=== PATIENT | female | born 1995 | race Caucasian/White ===

== ENCOUNTER 2017-08-11 14:01 | Emergency (ER) | payer MEDICAID ==
[2017-08-11] MEDS ORDERED: diphenhydrAMINE 25 MG Cap PO ONE (14:46)
--- NOTE | 2017-08-11 14:50 | EDM.PDOC ---
ED HPI GENERAL MEDICAL PROBLEM - General Chief Complaint: Skin Complaint Stated Complaint: LEFT LEG, ALLERGIC REACTION, POSSIBLE SPIDER BITE Time Seen by Provider: 08/11/17 14:36 Source of Information: Reports: Patient, RN Notes Reviewed History Limitations: Reports: No Limitations - History of Present Illness INITIAL COMMENTS - FREE TEXT/NARRATIVE: 22-year-old female presents to the emergency department with complaint of insect bite to her left thigh, this has occurred within the last 24 hours she is unsure of exactly what bit her local area is painful and red Left Upper Leg Pain Score (Numeric/FACES): 4 - Related Data Allergies Allergy/AdvReac Type Severity Reaction Status Date / Time acetaminophen [From Percocet] Allergy Vomiting Verified 08/11/17 14:24 aripiprazole [From Abilify] Allergy Hives Verified 08/11/17 14:24 fluoxetine [From Prozac] Allergy Hives Verified 08/11/17 14:24 oxycodone [From Percocet] Allergy Vomiting Verified 08/11/17 14:24 Home Meds: Home Meds DULoxetine HCl [Duloxetine HCl] 60 mg PO DAILY 08/11/17 [History] Prazosin HCl [Prazosin] 1 mg PO BEDTIME 08/11/17 [History] QUEtiapine Fumarate [Quetiapine Fumarate] 25 mg PO ASDIRECTED PRN 08/11/17 [ History] QUEtiapine Fumarate [Quetiapine Fumarate] 200 mg PO BEDTIME 08/11/17 [History] hydrOXYzine HCl [hydrOXYzine] 25 mg PO ASDIRECTED PRN 08/11/17 [History] Past Medical History Respiratory History: Reports: Asthma Gastrointestinal History: Reports: Cholelithiasis Genitourinary History: Reports: Renal Calculus 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: Psychiatric History: Reports: Anxiety, Depression, PTSD, Suicide Attempt Dermatologic History: Reports: Eczema - Past Surgical History HEENT Surgical History: Reports: Tonsillectomy GI Surgical History: Reports: Cholecystectomy Female Surgical History: Reports: Section Social & Family History - Tobacco Use Smoking Status *Q: Current Every Day Smoker Years of Tobacco use: 15 Packs/Tins Daily: 0.5 - Caffeine Use Caffeine Use: Reports: Coffee, Soda - Recreational Drug Use Recreational Drug Use: Yes Recreational Drug Type: Reports: Marijuana/Hashish ED ROS GENERAL - Review of Systems Review Of Systems: See Below Constitutional: Reports: No Symptoms Skin: Reports: Rash, Wound ED EXAM, SKIN/RASH Exam: See Below Text/Narrative:: Examination of the integument area on the left thigh, there is a small wound approximately 2 mm in diameter and what appears to be a stinger lodged in the center of the wound, this is removed with a #11 blade without difficulty, redness around the wound is the size of a nickel is tender to the touch and warm to touch Exam Limited By: No Limitations General Appearance: Alert, WD/WN, No Apparent Distress Course - Vital Signs Last Recorded V/S: Last Vital Signs Temp 98.2 F 08/11/17 14:16 Pulse 84 08/11/17 14:16 Resp 18 08/11/17 14:16 BP 129/78 08/11/17 14:16 Pulse Ox 97 08/11/17 14:16 Departure - Departure Time of Disposition: 14:48 Disposition: Home, Self-Care 01 Condition: Good Clinical Impression: Insect bite Qualifiers: Encounter type: initial encounter Qualified Code(s): W57.XXXA - Bitten or stung by nonvenomous insect and other nonvenomous arthropods, initial encounter - Discharge Information Referrals: Roberto Betancourt PA [Primary Care Provider] - Additional Instructions: Use Benadryl as needed to help with the inflammation of the wound, use a antibiotic ointment of your choice, Please followup with your primary care provider in 3-5 days if not better, please call return to the emergency department with worsening of symptoms. - Assessment/Plan Plan: Assessment Acuity = acute Site and laterality = insect bite Etiology = suspicious for venom type Manifestations = local irritation Location of injury = Home Lab values = none Plan Treatment with Benadryl in the emergency department continued use Benadryl as needed at home as well as topical antibiotic ointment follow-up primary care 3- 5 days if not better This note was dictated using [employer] voice recognition software please call with any questions on syntax or grammar.
== END 2017-08-11 15:10 | disposition home or self-care (01) ==
LOC: JP.ED 14:01
DX: S70.362A Insect bite (nonvenomous), left thigh, initial encounter (principal); F17.210 Nicotine dependence, cigarettes, uncomplicated; J45.909 Unspecified asthma, uncomplicated; W57.XXXA Bitten or stung by nonvenomous insect and other nonvenomous arthropods, initial encounter; Z88.5 Allergy status to narcotic agent; Z88.8 Allergy status to other drugs, medicaments and biological substances; Z79.899 Other long term (current) drug therapy; Z87.442 Personal history of urinary calculi; Z88.6 Allergy status to analgesic agent
CPT/HCPCS: 99283; A9270; 10060

== ENCOUNTER 2017-09-12 16:14 | Emergency (ER) | payer MEDICAID ==
[2017-09-12] MEDS ORDERED: Ketorolac 30 MG/ML SDV IVPUSH ONE (16:47)
--- NOTE | 2017-09-12 16:53 | EDM.PDOC ---
ED HPI GENERAL MEDICAL PROBLEM - General Chief Complaint: Chest Pain Stated Complaint: CHEST PAIN,HEADACHE Time Seen by Provider: 09/12/17 16:17 Source of Information: Reports: Patient History Limitations: Reports: No Limitations - History of Present Illness INITIAL COMMENTS - FREE TEXT/NARRATIVE: Being treated for neuritis, right side; she has been getting Solu medrol IV for the last couple of days started to develop chest pain, some shortness of breath she states she does have a hx of anxiety; She has a headache; hasn't taken anything for it. Some nausea with this as well. Onset: Gradual Location: Reports: Chest Severity: Moderate Improves with: Reports: None Worsens with: Reports: None Associated Symptoms: Reports: Chest Pain, Nausea/Vomiting, Other (anxiety) Right Temporal Chest Pain Score (Numeric/FACES): 7 - Related Data Allergies Allergy/AdvReac Type Severity Reaction Status Date / Time aripiprazole [From Abilify] Allergy Hives Verified 09/11/17 09:54 fluoxetine [From Prozac] Allergy Hives Verified 09/11/17 09:54 acetaminophen [From Percocet] AdvReac Vomiting Verified 09/11/17 09:54 oxycodone [From Percocet] AdvReac Vomiting Verified 09/11/17 09:54 Home Meds: Home Meds DULoxetine HCl [Duloxetine HCl] 60 mg PO DAILY 08/11/17 [History] Prazosin HCl [Prazosin] 3 mg PO BEDTIME 08/11/17 [History] QUEtiapine Fumarate [Quetiapine Fumarate] 25 mg PO ASDIRECTED PRN 08/11/17 [ History] QUEtiapine Fumarate [Quetiapine Fumarate] 200 mg PO BEDTIME 08/11/17 [History] hydrOXYzine HCl [hydrOXYzine] 25 mg PO ASDIRECTED PRN 08/11/17 [History] Past Medical History Respiratory History: Reports: Asthma Gastrointestinal History: Reports: Cholelithiasis Genitourinary History: Reports: Renal Calculus 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: Psychiatric History: Reports: Anxiety, Depression, PTSD, Suicide Attempt Endocrine/Metabolic History: Reports: Obesity/BMI 30+ Hematologic History: Reports: Other (See Below) Other Hematologic History: blood clot Dermatologic History: Reports: Eczema - Infectious Disease History Infectious Disease History: Reports: Chicken Pox - Past Surgical History HEENT Surgical History: Reports: Tonsillectomy GI Surgical History: Reports: Cholecystectomy Female Surgical History: Reports: Section Social & Family History - Tobacco Use Smoking Status *Q: Current Some Day Smoker Years of Tobacco use: 10 Packs/Tins Daily: 0.5 - Caffeine Use Caffeine Use: Reports: Coffee, Soda - Recreational Drug Use Recreational Drug Use: No ED ROS GENERAL - Review of Systems Review Of Systems: See Below Respiratory: Reports: Shortness of Breath Cardiovascular: Reports: Chest Pain GI/Abdominal: Reports: Nausea : Reports: No Symptoms Musculoskeletal: Reports: No Symptoms Skin: Reports: No Symptoms Neurological: Reports: Headache Psychiatric: Reports: Anxiety ED EXAM, GENERAL - Physical Exam Exam: See Below Exam Limited By: No Limitations General Appearance: Alert, WD/WN, No Apparent Distress Eye Exam: Bilateral Eye: EOMI, PERRL Throat/Mouth: Normal Inspection, Normal Oropharynx Head: Atraumatic, Normocephalic Neck: Normal Inspection, Supple, Non-Tender, Full Range of Motion Respiratory/Chest: No Respiratory Distress, Lungs Clear, Normal Breath Sounds Cardiovascular: Regular Rate, Rhythm GI/Abdominal: Normal Bowel Sounds, Distended, Other (obese) Back Exam: Full Range of Motion Extremities: Normal Inspection, Normal Range of Motion, Other (right forearm is tender where midline is in place) Neurological: Alert, Oriented, CN II-XII Intact, Normal Cognition, Normal Gait, Normal Reflexes, No Motor/Sensory Deficits Psychiatric: Normal Affect, Normal Mood Skin Exam: Warm, Dry, Intact, Normal Color Course - Vital Signs Last Recorded V/S: Last Vital Signs Temp 97.9 F 09/12/17 16:49 Pulse 56 L 09/12/17 16:49 Resp 16 09/12/17 16:49 BP 125/72 09/12/17 16:49 Pulse Ox 94 L 09/12/17 16:49 - Orders/Labs/Meds Orders: Active Orders 24 hr Category Date Time Status EKG Documentation Completion [RC] ASDIRECTED Care 09/12/17 16:18 Active EKG 12 Lead [EK] Routine Ther 09/12/17 16:17 Ordered Labs: Laboratory Tests 09/12/17 09/12/17 Range/Units 16:59 16:59 WBC 11.6 H (4.5-11.0) K/uL RBC 4.72 (3.30-5.50) M/uL Hgb 12.1 (12.0-15.0) g/dL Hct 38.0 (36.0-48.0) % MCV 81 (80-98) fL MCH 26 L (27-31) pg MCHC 32 (32-36) % Plt Count 274 (150-400) K/uL Neut % (Auto) 86 H (36-66) % Lymph % (Auto) 9 L (24-44) % [place] % (Auto) 5 (2-6) % Eos % (Auto) 0 L (2-4) % Baso % (Auto) 0 (0-1) % Sodium 141 (140-148) mmol/L Potassium 3.5 L (3.6-5.2) mmol/L Chloride 107 (100-108) mmol/L Carbon Dioxide 24 (21-32) mmol/L Anion Gap 13.5 (5.0-14.0) mmol/L BUN 14 (7-18) mg/dL Creatinine 0.9 (0.6-1.0) mg/dL Est Cr Clr Drug Dosing 93.73 mL/min Estimated GFR (MDRD) > 60 (>60) Glucose 210 H (74-106) mg/dL Calcium 8.2 L (8.5-10.1) mg/dL Total Bilirubin 0.3 (0.2-1.0) mg/dL AST 41 H (15-37) U/L ALT 75 (12-78) U/L Alkaline Phosphatase 69 (46-116) U/L Troponin I < 0.017 (0.000-0.056) ng/mL Total Protein 6.3 L (6.4-8.2) g/dL Albumin 3.3 L (3.4-5.0) g/dL Globulin 3.0 (2.3-3.5) g/dL Albumin/Globulin Ratio 1.1 L (1.2-2.2) Meds: Medications Discontinued Medications Generic Name Dose Route Start Last Admin Trade Name Freq PRN Reason Stop Dose Admin Sodium Chloride 1,000 mls @ 75 mls/hr 09/12/17 17:00 09/12/17 16:59 Normal Saline IV 75 mls/hr ASDIRECTED MEHRAN Administration Ketorolac Tromethamine 30 mg 09/12/17 16:47 09/12/17 16:59 Toradol IVPUSH 09/12/17 16:48 30 mg ONETIME ONE Administration - Re-Assessments/Exams Free Text/Narrative Re-Assessment/Exam: 09/12/17 20:37 reviewed MRI results as well as lab results with patient She recieved IVF and toradol; not much help for migraine; which nothing has helped for the last 2 weeks. Departure - Departure Time of Disposition: 18:00 Disposition: Home, Self-Care 01 Condition: Fair Clinical Impression: Chest wall pain, Headache - Discharge Information Instructions: Chest Wall Pain, [id number], General Headache Without Cause, [id number] Referrals: Roberto Betancourt PA [Primary Care Provider] - Forms: ED Department Discharge Additional Instructions: Stay hydrated; Tylenol and Ibuprofen are both safe to take for your headache. Be sure to follow up with Dr. Malone as directed as well as your primary care doctor. Continue with your oral steroids. - Problem List & Annotations (1) Chest wall pain SNOMED Code(s): 565775782 Code(s): R07.89 - OTHER CHEST PAIN Status: Acute Priority: Medium - Problem List Review Problem List Initiated/Reviewed/Updated: Yes - My Orders Last 24 Hours: My Active Orders 09/12/17 16:17 EKG 12 Lead [EK] Routine 09/12/17 16:18 EKG Documentation Completion [RC] ASDIRECTED - Assessment/Plan Last 24 Hours: My Active Orders 09/12/17 16:17 EKG 12 Lead [EK] Routine 09/12/17 16:18 EKG Documentation Completion [RC] ASDIRECTED
[2017-09-12] MEDS ORDERED: Sodium Chloride 0.9% 1,000 ML IV SCH (17:00)
== END 2017-09-12 18:10 | disposition home or self-care (01) ==
LOC: JP.ED 16:14
DX: R07.89 Other chest pain (principal); R51 Headache; F17.210 Nicotine dependence, cigarettes, uncomplicated; Z88.5 Allergy status to narcotic agent; Z88.8 Allergy status to other drugs, medicaments and biological substances; Z79.899 Other long term (current) drug therapy; Z87.442 Personal history of urinary calculi
CPT/HCPCS: 36415; 80053; 84484; 85025; 93005; 96361; 96374; 99285; J1885; J7030

== ENCOUNTER 2017-11-19 12:12 | Emergency (ER) | payer MEDICAID ==
[2017-11-19] MEDS ORDERED: Gadoteridol 279.3 MG/ML 20 ML SDV IV SCH (13:30)
--- NOTE | 2017-11-19 14:34 | EDM.PDOC ---
ED HPI GENERAL MEDICAL PROBLEM - General Chief Complaint: Headache Stated Complaint: LOSS OF VISION-RT EYE Time Seen by Provider: 11/19/17 12:30 Source of Information: Reports: Patient, Family History Limitations: Reports: No Limitations - History of Present Illness INITIAL COMMENTS - FREE TEXT/NARRATIVE: 22-year-old female with previous vision loss and questionable MS findings on MRI has been doing well for the last 2 months but has redeveloped visual loss and a headache around her right eye over the past 12 hours. She called the neurology department in [place] who works with her, they recommended she come here. She has no peripheral symptoms such as numbness, weakness, or discoordination of the arms or legs. No recent trauma. No recent illness. Her visual change is all she sees is "an outline of things", but she does see color and shapes which is better than last time which was just a "white out". Onset: Gradual Duration: Hour(s): (Symptoms have been present for 12 hours) Headache Pain Score (Numeric/FACES): 6 - Related Data Allergies Allergy/AdvReac Type Severity Reaction Status Date / Time aripiprazole [From Abilify] Allergy Hives Verified 11/19/17 12:21 fluoxetine [From Prozac] Allergy Hives Verified 11/19/17 12:21 acetaminophen [From Percocet] AdvReac Vomiting Verified 11/19/17 12:21 oxycodone [From Percocet] AdvReac Vomiting Verified 11/19/17 12:21 Home Meds: Home Meds DULoxetine HCl [Duloxetine HCl] 60 mg PO DAILY 08/11/17 [History] Prazosin HCl [Prazosin] 3 mg PO BEDTIME 08/11/17 [History] QUEtiapine Fumarate [Quetiapine Fumarate] 25 mg PO ASDIRECTED PRN 08/11/17 [ History] QUEtiapine Fumarate [Quetiapine Fumarate] 200 mg PO BEDTIME 08/11/17 [History] hydrOXYzine HCl [hydrOXYzine] 25 mg PO ASDIRECTED PRN 08/11/17 [History] Past Medical History HEENT History: Reports: Impaired Vision Respiratory History: Reports: Asthma Gastrointestinal History: Reports: Cholelithiasis Genitourinary History: Reports: Renal Calculus 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: Musculoskeletal History: Reports: Back Pain, Chronic, Other (See Below) Neurological History: Reports: Concussion, Migraines Psychiatric History: Reports: Anxiety, Depression, PTSD, Suicide Attempt Endocrine/Metabolic History: Reports: Obesity/BMI 30+ Immunologic History: Reports: None Dermatologic History: Reports: Eczema - Infectious Disease History Infectious Disease History: Reports: Chicken Pox - Past Surgical History Head Surgeries/Procedures: Reports: None HEENT Surgical History: Reports: Tonsillectomy Respiratory Surgical History: Reports: None GI Surgical History: Reports: Cholecystectomy Female Surgical History: Reports: Section Endocrine Surgical History: Reports: None Neurological Surgical History: Reports: None Musculoskeletal Surgical History: Reports: None Dermatological Surgical History: Reports: None Social & Family History - Tobacco Use Smoking Status *Q: Current Every Day Smoker Years of Tobacco use: 10 Packs/Tins Daily: 0.5 Used Tobacco, but Quit: No Second Hand Smoke Exposure: No - Caffeine Use Caffeine Use: Reports: Coffee, Tea - Recreational Drug Use Recreational Drug Use: No ED ROS GENERAL - Review of Systems Review Of Systems: See Below Constitutional: Denies: Fever, Chills HEENT: Reports: Vision Change Respiratory: Denies: Shortness of Breath Cardiovascular: Denies: Chest Pain GI/Abdominal: Denies: Abdominal Pain, Nausea, Vomiting Skin: Reports: No Symptoms Neurological: Reports: Headache - Physical Exam Exam: See Below Exam Limited By: No Limitations General Appearance: Alert, No Apparent Distress Eye Exam: Bilateral Eye: EOMI, PERRL Head Exam: Atraumatic Neck: Normal Inspection Respiratory/Chest: No Respiratory Distress, Lungs Clear Cardiovascular: Regular Rate, Rhythm Neuro Exam (Abbreviated): Alert, Oriented, No Motor/Sensory Deficits. No: Disoriented Psychiatric: Normal Affect, Normal Mood Skin Exam: Warm, Dry Course - Vital Signs Last Recorded V/S: Last Vital Signs Temp 95.6 F 11/19/17 12:30 Pulse 75 11/19/17 12:30 Resp 16 11/19/17 12:30 BP 126/77 11/19/17 12:30 Pulse Ox 96 11/19/17 12:30 - Orders/Labs/Meds Meds: Medications Discontinued Medications Generic Name Dose Route Start Last Admin Trade Name Freq PRN Reason Stop Dose Admin Gadoteridol 20 ml 11/19/17 13:30 11/19/17 14:05 Prohance IV 20 ml . DIRECTED MEHRAN Administration - Re-Assessments/Exams Free Text/Narrative Re-Assessment/Exam: 11/19/17 14:34 Discussed her case with Dr. Strauss, neurologist in [place] and an MRI of the brain and optic nerve on the right side was advised. Fortunately she she was able to get into the MRI urgently. 11/19/17 16:51 MRI of the brain and optic nerve showed one small focus of abnormality in the deep white matter right cerebral hemisphere. This was discussed with ophthalmology and neurology. Dr. Mendez agreed to see her this evening followed by Dr. Strauss seeing her at 10 AM tomorrow morning at [facility] in [place]. Departure - Departure Time of Disposition: 16:52 Disposition: Home, Self-Care 01 Condition: Good Clinical Impression: Vision loss of right eye - Discharge Information Instructions: Visual Disturbances Referrals: Roberto Betancourt PA [Primary Care Provider] - Forms: ED Department Discharge Care Plan Goals: Dr. Mendez will need to at the eye clinic in [place] at 6:00 for further examination.
--- NOTE | 2017-11-19 14:47 | MR ---
Face Neck Orbit w wo Cont HISTORY: vision loss TECHNIQUE: Multiplanar sequences of the brain and orbits were performed without and with gadolinium a long with diffusion imaging. Thin section sequences were obtained through the orbits in axial and cor onal projections. There are no prior studies present for comparison. FINDINGS: Midline structures appear intact. No restricted diffusion or hemosiderin deposition is seen. No acute hemorrhage or infarct is identified. On the T2 and FLAIR images there is a single 2 x 3 mm focus of increased signal deep white matter rig ht cerebral hemisphere cephalad to the lenticular nucleus Signal characteristics of the hill and whit e matter appear otherwise within normal limits throughout the brain. No mass lesion, mass effect, mid line shift, or ventricular abnormality is identified. There is no enhancing mass or other abnormal in tracranial enhancement on the contrasted sequences. No abnormal extra-axial fluid collections are see n. Visualized paranasal sinuses and mastoid air cells are clear. Globes appear symmetric with no signal abnormality or abnormal enhancement. Intraocular muscles are s ymmetric. Retrobulbar fat demonstrates normal signal characteristics. No intraorbital mass or abnorma l enhancement is identified. I see no abnormal signal or enhancement along the optic nerves or optic tracts. No abnormal signal is seen in the region of the optic chiasm. There is no evidence for pituit enrique or suprasellar mass or abnormal enhancement. IMPRESSION: 1. A single small nonspecific focus of increased T2 signal is seen in the deep white matter right cer ebral hemisphere. Differential could include a prominent perivascular space, sequela of migraine head aches, a single focus of chronic microvascular ischemia or early demyelinating process such as multip le sclerosis. 2. MRI brain otherwise within normal limits. No hemorrhage, infarct, or other acute intracranial abno rmality is identified. I see no intracranial mass or abnormal enhancement. 3. No intraorbital signal abnormality, mass, or abnormal enhancement is identified. I see no abnormal signal or enhancement along the optic nerves or optic tracts.
== END 2017-11-19 16:55 | disposition home or self-care (01) ==
LOC: JP.ED 12:12
DX: H54.61 Unqualified visual loss, right eye, normal vision left eye (principal); E66.9 Obesity, unspecified; F17.210 Nicotine dependence, cigarettes, uncomplicated; Z88.8 Allergy status to other drugs, medicaments and biological substances
CPT/HCPCS: 70543; 99284; A9576; A9579

== ENCOUNTER 2017-11-24 12:04 | Emergency (ER) | payer MEDICAID ==
[2017-11-24] MEDS ORDERED: Sodium Chloride 0.9% 10 ML Syringe FLUSH PRN (14:32)
[2017-11-24] MEDS ORDERED: Ondansetron 4 MG/2 ML SDV IVPUSH ONE (14:33)
--- NOTE | 2017-11-24 14:37 | EDM.PDOC ---
ED HPI GENERAL MEDICAL PROBLEM - General Chief Complaint: General Stated Complaint: HEADACHE, VOMITING, ABD PAIN Time Seen by Provider: 11/24/17 14:20 Source of Information: Reports: Patient, Family, RN Notes Reviewed History Limitations: Reports: No Limitations - History of Present Illness INITIAL COMMENTS - FREE TEXT/NARRATIVE: 22-year-old female presents to the emergency department today complaint of nausea vomiting headache generalized feeling poorly as well as abdominal pain. She is currently being evaluated for the possibility of multiple sclerosis has lost vision in her right eye. She states she's been ill over the last 3 days unable to keep food or water down with increasing nausea and vomiting no fevers abdominal Pain Score (Numeric/FACES): 5 - Related Data Allergies Allergy/AdvReac Type Severity Reaction Status Date / Time aripiprazole [From Abilify] Allergy Hives Verified 11/24/17 14:07 fluoxetine [From Prozac] Allergy Hives Verified 11/24/17 14:07 acetaminophen [From Percocet] AdvReac Vomiting Verified 11/24/17 14:07 oxycodone [From Percocet] AdvReac Vomiting Verified 11/24/17 14:07 Home Meds: Home Meds DULoxetine HCl [Duloxetine HCl] 60 mg PO DAILY 08/11/17 [History] Prazosin HCl [Prazosin] 3 mg PO BEDTIME 08/11/17 [History] QUEtiapine Fumarate [Quetiapine Fumarate] 25 mg PO ASDIRECTED PRN 08/11/17 [ History] QUEtiapine Fumarate [Quetiapine Fumarate] 200 mg PO BEDTIME 08/11/17 [History] hydrOXYzine HCl [hydrOXYzine] 25 mg PO ASDIRECTED PRN 08/11/17 [History] Past Medical History HEENT History: Reports: Impaired Vision Respiratory History: Reports: Asthma Gastrointestinal History: Reports: Cholelithiasis Genitourinary History: Reports: Renal Calculus 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: Musculoskeletal History: Reports: Back Pain, Chronic Neurological History: Reports: Concussion, Migraines, MS Psychiatric History: Reports: Anxiety, Depression, PTSD, Suicide Attempt Endocrine/Metabolic History: Reports: Obesity/BMI 30+ Hematologic History: Reports: Other (See Below) Other Hematologic History: blood clot Dermatologic History: Reports: Eczema - Infectious Disease History Infectious Disease History: Reports: Chicken Pox - Past Surgical History Head Surgeries/Procedures: Reports: None HEENT Surgical History: Reports: Tonsillectomy Respiratory Surgical History: Reports: None GI Surgical History: Reports: Cholecystectomy Female Surgical History: Reports: Section Endocrine Surgical History: Reports: None Neurological Surgical History: Reports: None Musculoskeletal Surgical History: Reports: None Dermatological Surgical History: Reports: None Social & Family History - Tobacco Use Smoking Status *Q: Never Smoker - Caffeine Use Caffeine Use: Reports: Coffee, Soda - Recreational Drug Use Recreational Drug Use: No ED ROS GENERAL - Review of Systems Review Of Systems: See Below Constitutional: Reports: Fatigue HEENT: Reports: No Symptoms Respiratory: Reports: No Symptoms Cardiovascular: Reports: No Symptoms GI/Abdominal: Reports: Abdominal Pain, Flatus, Nausea, Vomiting : Reports: No Symptoms Musculoskeletal: Reports: No Symptoms Skin: Reports: No Symptoms Neurological: Reports: Headache ED EXAM, GENERAL - Physical Exam Exam: See Below Free Text/Narrative:: General: Obese female, not in any distress, alert and oriented x3 HEENT: head is atraumatic normocephalic, eyes pupils equal round reactive to light, sclera clear no conjunctivitis appreciated. Nose no septal deviation, nares are clear , no blood present. Mouth mucosa is moist and pink no erythema or exudate noted in soft palate, tongue is midline uvula is midline, dentition is intact. Neck: Supple no thyromegaly no tracheal deviation. Nodes: Cervical nodes subclavicular nodes nontender no palpable lymphadenopathy noted. Lungs: clear to auscultation bilaterally with symmetrical respirations, no adventitious noise appreciated. CV: Regular rate and rhythm S1 and S2 appreciated no murmurs rubs or gallops noted. Abdomen: Soft, obese, nontender, no palpable masses or organomegaly appreciated , no distention no guarding bowel sounds are present, . Neuro: Cranial nerves II through XII grossly intact Skin: Warm and dry, intact Extremities: No lower extremity edema appreciated, pedal pulse is +2. Course - Vital Signs Last Recorded V/S: Last Vital Signs Temp 98.3 F 11/24/17 14:06 Pulse 67 11/24/17 14:06 Resp 16 11/24/17 14:06 BP 138/61 11/24/17 14:06 Pulse Ox 99 11/24/17 14:06 - Orders/Labs/Meds Orders: Active Orders 24 hr Category Date Time Status Peripheral IV Care [RC] . DIRECTED Care 11/24/17 14:32 Active Lactated Ringers [Ringers, Lactated] 1,000 ml Med 11/24/17 14:45 Active IV ASDIRECTED Sodium Chloride 0.9% [Saline Flush] Med 11/24/17 14:32 Active 10 ml FLUSH ASDIRECTED PRN Peripheral IV Insertion Adult [OM.PC] Urgent Oth 11/24/17 14:32 Ordered Medication Orders Lactated Ringer's (Ringers, Lactated) 1,000 mls @ 999 mls/hr IV ASDIRECTED MEHRAN Last Admin: 11/24/17 14:57 Dose: 999 mls/hr Sodium Chloride (Saline Flush) 10 ml FLUSH ASDIRECTED PRN PRN Reason: Keep Vein Open Last Admin: 11/24/17 14:57 Dose: 10 ml Labs: Laboratory Tests 11/24/17 11/24/17 11/24/17 Range/Units 14:32 15:07 15:07 WBC 9.1 (4.5-11.0) K/uL RBC 4.97 (3.30-5.50) M/uL Hgb 13.1 (12.0-15.0) g/dL Hct 40.7 (36.0-48.0) % MCV 82 (80-98) fL MCH 26 L (27-31) pg MCHC 32 (32-36) % Plt Count 300 (150-400) K/uL Neut % (Auto) 65 (36-66) % Lymph % (Auto) 24 (24-44) % [place] % (Auto) 8 H (2-6) % Eos % (Auto) 2 (2-4) % Baso % (Auto) 0 (0-1) % Sodium 137 L (140-148) mmol/L Potassium 3.9 (3.6-5.2) mmol/L Chloride 104 (100-108) mmol/L Carbon Dioxide 27 (21-32) mmol/L Anion Gap 9.9 (5.0-14.0) mmol/L BUN 9 (7-18) mg/dL Creatinine 0.8 (0.6-1.0) mg/dL Est Cr Clr Drug Dosing 109.38 mL/min Estimated GFR (MDRD) > 60 (>60) Glucose 84 (74-106) mg/dL Lactic Acid 0.9 (0.4-2.0) mmol/L Calcium 8.7 (8.5-10.1) mg/dL Total Bilirubin 0.4 (0.2-1.0) mg/dL AST 13 L (15-37) U/L ALT 26 (12-78) U/L Alkaline Phosphatase 77 (46-116) U/L Total Protein 6.8 (6.4-8.2) g/dL Albumin 3.7 (3.4-5.0) g/dL Globulin 3.1 (2.3-3.5) g/dL Albumin/Globulin Ratio 1.2 (1.2-2.2) Lipase 89 (73-393) U/L Urine Color Urine Appearance Urine pH (4.5-8.0) Ur Specific [place] (1.008-1.030) Urine Protein (NEGATIVE) mg/dL Urine Glucose (UA) (NEGATIVE) mg/dL Urine Ketones (NEGATIVE) mg/dL Urine Occult Blood (NEGATIVE) Urine Nitrite (NEGATIVE) Urine Bilirubin (NEGATIVE) Urine Urobilinogen (NORMAL) mg/dL Ur Leukocyte Esterase (NEGATIVE) Urine RBC (0-5) Urine WBC (0-5) Ur Epithelial Cells Amorphous Sediment Urine Bacteria Urine Mucus Urine HCG, Qual 11/24/17 11/24/17 Range/Units 16:04 16:04 WBC (4.5-11.0) K/uL RBC (3.30-5.50) M/uL Hgb (12.0-15.0) g/dL Hct (36.0-48.0) % MCV (80-98) fL MCH (27-31) pg MCHC (32-36) % Plt Count (150-400) K/uL Neut % (Auto) (36-66) % Lymph % (Auto) (24-44) % [place] % (Auto) (2-6) % Eos % (Auto) (2-4) % Baso % (Auto) (0-1) % Sodium (140-148) mmol/L Potassium (3.6-5.2) mmol/L Chloride (100-108) mmol/L Carbon Dioxide (21-32) mmol/L Anion Gap (5.0-14.0) mmol/L BUN (7-18) mg/dL Creatinine (0.6-1.0) mg/dL Est Cr Clr Drug Dosing mL/min Estimated GFR (MDRD) (>60) Glucose (74-106) mg/dL Lactic Acid (0.4-2.0) mmol/L Calcium (8.5-10.1) mg/dL Total Bilirubin (0.2-1.0) mg/dL AST (15-37) U/L ALT (12-78) U/L Alkaline Phosphatase (46-116) U/L Total Protein (6.4-8.2) g/dL Albumin (3.4-5.0) g/dL Globulin (2.3-3.5) g/dL Albumin/Globulin Ratio (1.2-2.2) Lipase (73-393) U/L Urine Color Yellow Urine Appearance Clear Urine pH 6.0 (4.5-8.0) Ur Specific [place] 1.015 (1.008-1.030) Urine Protein Negative (NEGATIVE) mg/dL Urine Glucose (UA) Normal (NEGATIVE) mg/dL Urine Ketones Negative (NEGATIVE) mg/dL Urine Occult Blood Negative (NEGATIVE) Urine Nitrite Negative (NEGATIVE) Urine Bilirubin Negative (NEGATIVE) Urine Urobilinogen Normal (NORMAL) mg/dL Ur Leukocyte Esterase Negative (NEGATIVE) Urine RBC 0-5 (0-5) Urine WBC 0-5 (0-5) Ur Epithelial Cells Rare Amorphous Sediment Few Urine Bacteria Rare Urine Mucus Few Urine HCG, Qual Negative Meds: Medications Generic Name Dose Route Start Last Admin Trade Name Judd PRN Reason Stop Dose Admin Lactated Ringer's 1,000 mls @ 999 mls/hr 11/24/17 14:45 11/24/17 14:57 Ringers, Lactated IV 999 mls/hr ASDIRECTED MEHRAN Administration Sodium Chloride 10 ml 11/24/17 14:32 11/24/17 14:57 Saline Flush FLUSH 10 ml ASDIRECTED PRN Administration Keep Vein Open Discontinued Medications Generic Name Dose Route Start Last Admin Trade Name Freq PRN Reason Stop Dose Admin Ondansetron HCl 4 mg 11/24/17 14:33 11/24/17 14:57 Zofran IVPUSH 11/24/17 14:34 4 mg ONETIME ONE Administration Departure - Departure Time of Disposition: 16:50 Disposition: Home, Self-Care 01 Condition: Good Clinical Impression: Nausea and vomiting Qualifiers: Vomiting type: unspecified Vomiting Intractability: non-intractable Qualified Code(s): R11.2 - Nausea with vomiting, unspecified - Discharge Information Referrals: Roberto Betancourt PA [Primary Care Provider] - Forms: ED Department Discharge Additional Instructions: Use Zofran as needed to control nausea and vomiting symptoms, continue to push fluids, Please followup with your primary care provider in 3-5 days if not better, please call return to the emergency department with worsening of symptoms. - My Orders Last 24 Hours: My Active Orders 11/24/17 14:32 Peripheral IV Care [RC] . DIRECTED Sodium Chloride 0.9% [Saline Flush] 10 ml FLUSH ASDIRECTED PRN Peripheral IV Insertion Adult [OM.PC] Urgent 11/24/17 14:45 Lactated Ringers [Ringers, Lactated] 1,000 ml IV ASDIRECTED - Assessment/Plan Last 24 Hours: My Active Orders 11/24/17 14:32 Peripheral IV Care [RC] . DIRECTED Sodium Chloride 0.9% [Saline Flush] 10 ml FLUSH ASDIRECTED PRN Peripheral IV Insertion Adult [OM.PC] Urgent 11/24/17 14:45 Lactated Ringers [Ringers, Lactated] 1,000 ml IV ASDIRECTED Plan: Assessment Acuity = acute Site and laterality = nausea vomiting and generalized abdominal pain Etiology = probable viral cause Manifestations = none Location of injury = Home Lab values = CBC, CMP, urinalysis, beta-hCG all within normal limits Plan She had good improvement with Zofran and 1 L of fluids discharge home with Zofran ODT 4 mg 1 tablet by mouth every 8 hours when necessary total #5 follow- up with primary care in 3-5 days if no improvement This note was dictated using [employer] voice recognition software please call with any questions on syntax or grammar.
[2017-11-24] MEDS ORDERED: Lactated Ringers 1,000 ML IV SCH (14:45)
== END 2017-11-24 17:02 | disposition home or self-care (01) ==
LOC: JP.ED 12:04
DX: R11.2 Nausea with vomiting, unspecified (principal); R10.84 Generalized abdominal pain; E66.9 Obesity, unspecified; Z79.899 Other long term (current) drug therapy
CPT/HCPCS: 36415; 80053; 81001; 81025; 83605; 83690; 85025; 96361; 96374; 99284; J2405; J7050; J7120

== ENCOUNTER 2017-12-07 18:40 | Emergency (ER) | payer MEDICAID ==
--- NOTE | 2017-12-07 18:59 | EDM.PDOC ---
ED HPI GENERAL MEDICAL PROBLEM - General Chief Complaint: General Stated Complaint: ILLNESS Time Seen by Provider: 12/07/17 18:53 Source of Information: Reports: Patient, RN History Limitations: Reports: No Limitations - History of Present Illness INITIAL COMMENTS - FREE TEXT/NARRATIVE: 22 yo female here with some minor bleeding from a site where she had a central line placed earlier today. She called [facility] and was told to come to our ER for evaluation. Onset: Today Onset Date: 12/07/17 Duration: Hour(s):, Resolved Prior to Arrival Location: Reports: Chest Quality: Reports: Other (no pain) Severity: Mild Improves with: Reports: Other (direct pressure) Worsens with: Reports: None Context: Reports: Other (central line removal) Associated Symptoms: Reports: No Other Symptoms Treatments SPOOLER: Reports: Other (see below) (direct pressure) - Related Data Allergies Allergy/AdvReac Type Severity Reaction Status Date / Time aripiprazole [From Abilify] Allergy Hives Verified 11/24/17 14:07 fluoxetine [From Prozac] Allergy Hives Verified 11/24/17 14:07 acetaminophen [From Percocet] AdvReac Vomiting Verified 11/24/17 14:07 oxycodone [From Percocet] AdvReac Vomiting Verified 11/24/17 14:07 Home Meds: Home Meds DULoxetine HCl [Duloxetine HCl] 60 mg PO DAILY 08/11/17 [History] Prazosin HCl [Prazosin] 3 mg PO BEDTIME 08/11/17 [History] QUEtiapine Fumarate [Quetiapine Fumarate] 25 mg PO ASDIRECTED PRN 08/11/17 [ History] QUEtiapine Fumarate [Quetiapine Fumarate] 200 mg PO BEDTIME 08/11/17 [History] hydrOXYzine HCl [hydrOXYzine] 25 mg PO ASDIRECTED PRN 08/11/17 [History] Past Medical History HEENT History: Reports: Impaired Vision Respiratory History: Reports: Asthma Gastrointestinal History: Reports: Cholelithiasis Genitourinary History: Reports: Renal Calculus 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: Musculoskeletal History: Reports: Back Pain, Chronic Neurological History: Reports: Concussion, Migraines, MS Psychiatric History: Reports: Anxiety, Depression, PTSD, Suicide Attempt Endocrine/Metabolic History: Reports: Obesity/BMI 30+ Hematologic History: Reports: Other (See Below) Other Hematologic History: blood clot Immunologic History: Reports: None Dermatologic History: Reports: Eczema - Infectious Disease History Infectious Disease History: Reports: Chicken Pox - Past Surgical History Head Surgeries/Procedures: Reports: None HEENT Surgical History: Reports: Tonsillectomy Respiratory Surgical History: Reports: None GI Surgical History: Reports: Cholecystectomy Female Surgical History: Reports: Section Endocrine Surgical History: Reports: None Neurological Surgical History: Reports: None Musculoskeletal Surgical History: Reports: None Dermatological Surgical History: Reports: None Social & Family History - Tobacco Use Smoking Status *Q: Never Smoker - Caffeine Use Caffeine Use: Reports: Coffee - Recreational Drug Use Recreational Drug Use: No ED ROS GENERAL - Review of Systems Review Of Systems: See Below Constitutional: Reports: No Symptoms Skin: Reports: Other (bleeding from a central line access site. Minimal volume. Easily controlled.) ED EXAM, GENERAL - Physical Exam Exam: See Below Exam Limited By: No Limitations General Appearance: Alert, WD/WN, No Apparent Distress, Obese Eye Exam: Bilateral Eye: Normal Inspection Ears: Normal External Exam, Normal Canal, Hearing Grossly Normal Ear Exam: Bilateral Ear: Auricle Normal, Canal Normal Nose: Normal Inspection, Normal Mucosa, No Blood Throat/Mouth: Normal Inspection, Normal Lips, Normal Voice, No Airway Compromise Head: Atraumatic, Normocephalic Neck: Normal Inspection Respiratory/Chest: No Respiratory Distress, No Accessory Muscle Use Cardiovascular: Regular Rate, Rhythm Skin Exam: Warm, Dry, Normal Color, No Rash, Wound/Incision (access site R upper chest(subclavian). Minimal bleeding. Easily controlled. ) Course - Vital Signs Text/Narrative:: Dressing changed by nursing. Last Recorded V/S: Last Vital Signs Temp 36.6 C 12/07/17 18:45 Pulse 95 12/07/17 18:45 Resp 18 12/07/17 18:45 BP 139/70 12/07/17 18:45 Pulse Ox 95 12/07/17 18:45 Departure - Departure Time of Disposition: 19:02 Disposition: Home, Self-Care 01 Condition: Good Clinical Impression: Dressing change - Discharge Information *PRESCRIPTION DRUG MONITORING PROGRAM REVIEWED*: Not Applicable *COPY OF PRESCRIPTION DRUG MONITORING REPORT IN PATIENT TRITSA: Not Applicable Referrals: Roberto Betancourt PA [Primary Care Provider] - Additional Instructions: Continue plan as outlined for you by Yuval. Recheck as needed.
== END 2017-12-07 19:32 | disposition home or self-care (01) ==
LOC: JP.ED 18:40
DX: Z48.812 Encounter for surgical aftercare following surgery on the circulatory system (principal); Z88.8 Allergy status to other drugs, medicaments and biological substances; Z88.6 Allergy status to analgesic agent
CPT/HCPCS: 99285

== ENCOUNTER 2018-04-28 21:37 | Emergency (ER) | payer MEDICAID ==
[2018-04-28] MEDS ORDERED: Acetaminophen Soln 650 MG/20.3 ML UD Cup PO ONE (22:07)
[2018-04-28] MEDS ORDERED: Sodium Chloride 0.9% 1,000 ML IV SCH (22:15)
[2018-04-28] MEDS ORDERED: Acetaminophen 325 MG Tab PO ONE (22:33)
[2018-04-28] MEDS ORDERED: Potassium Chloride 20 MEQ Tab.ER PO ONE (23:13)
--- NOTE | 2018-04-28 23:28 | EDM.PDOC ---
ED HPI GENERAL MEDICAL PROBLEM - General Chief Complaint: Abdominal Pain Stated Complaint: 7 wks and pain in abd Time Seen by Provider: 04/28/18 21:53 Source of Information: Reports: Patient History Limitations: Reports: No Limitations - History of Present Illness INITIAL COMMENTS - FREE TEXT/NARRATIVE: 22 years old female patient 2 para 1 at 7 weeks . Presented with chief complaint of lower abdominal pain started tonight. 2 or 3 hour prior to arrival. Constant cramping waxing and waning. Associated with nausea but no vomiting. Denies any fever. Denies any urinary symptom. Denies any vaginal bleeding or discharge. No radiation of her pain. Nothing makes it better or worse. Denies any chest pain shortness breath. Denies any cough or fever. Patient had an ultrasound earlier today shows 7 weeks but no heart tone was seen and concern about miscarrying. Onset: Today abdominal cramping Pain Score (Numeric/FACES): 6 - Related Data Allergies Allergy/AdvReac Type Severity Reaction Status Date / Time aripiprazole [From Abilify] Allergy Hives Verified 04/28/18 21:56 fluoxetine [From Prozac] Allergy Hives Verified 04/28/18 21:56 acetaminophen [From Percocet] AdvReac Vomiting Verified 04/28/18 21:56 oxycodone [From Percocet] AdvReac Vomiting Verified 04/28/18 21:56 Home Meds: Home Meds Lurasidone [Latuda] 40 mg PO DAILY 04/28/18 [History] Cmb#95/Iron/FA/DHA [ + Dha Combo Pack] 1 tab PO DAILY 04/28/18 [History] Past Medical History HEENT History: Reports: Impaired Vision Cardiovascular History: Reports: Arrhythmia Respiratory History: Reports: Asthma Gastrointestinal History: Reports: Cholelithiasis Genitourinary History: Reports: Renal Calculus 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: Musculoskeletal History: Reports: Back Pain, Chronic Neurological History: Reports: Concussion, Migraines, MS Psychiatric History: Reports: Anxiety, Depression, PTSD, Suicide Attempt Endocrine/Metabolic History: Reports: Obesity/BMI 30+ Hematologic History: Reports: Other (See Below) Other Hematologic History: blood clot Immunologic History: Reports: None Dermatologic History: Reports: Eczema - Infectious Disease History Infectious Disease History: Reports: Chicken Pox - Past Surgical History Head Surgeries/Procedures: Reports: None HEENT Surgical History: Reports: Tonsillectomy Cardiovascular Surgical History: Reports: None Respiratory Surgical History: Reports: None GI Surgical History: Reports: Cholecystectomy Female Surgical History: Reports: Section Endocrine Surgical History: Reports: None Neurological Surgical History: Reports: None Musculoskeletal Surgical History: Reports: None Dermatological Surgical History: Reports: None Social & Family History - Tobacco Use Smoking Status *Q: Current Every Day Smoker Years of Tobacco use: 6 Packs/Tins Daily: 0.2 - Caffeine Use Caffeine Use: Reports: Coffee, Soda - Recreational Drug Use Recreational Drug Use: No ED ROS GENERAL - Review of Systems Review Of Systems: ROS reveals no pertinent complaints other than HPI. ED EXAM, GI/ABD - Physical Exam Exam: See Below Exam Limited By: No Limitations General Appearance: Alert, No Apparent Distress Ears: Normal External Exam Nose: Normal Inspection Head: Atraumatic, Normocephalic Neck: Normal Inspection Respiratory/Chest: No Respiratory Distress, Lungs Clear, Normal Breath Sounds, No Accessory Muscle Use. No: Crackles, Rales, Rhonchi, Wheezing Cardiovascular: Normal Peripheral Pulses, Regular Rate, Rhythm, No Edema, No Gallop, No JVD, No Murmur. No: Bradycardia, Tachycardia GI/Abdominal Exam: Normal Bowel Sounds, No Organomegaly, No Distention, No Mass , Tender. No: Distended, Guarding, Rigid, Rebound, Abnormal Bowel Sounds, Hernia, Mass, Hepatomegaly, Splenomegaly Extremities: Normal Inspection Neurological: Alert, Oriented, CN II-XII Intact, Normal Cognition, No Motor/ Sensory Deficits Psychiatric: Anxious Course - Vital Signs Last Recorded V/S: Last Vital Signs Temp 36.9 C 04/28/18 21:56 Pulse 97 04/28/18 21:56 Resp 20 04/28/18 21:56 BP 151/93 H 04/28/18 21:56 Pulse Ox 98 04/28/18 21:56 - Orders/Labs/Meds Orders: Active Orders 24 hr Category Date Time Status OB 1st Tri Sgl 1st Gest [US] Urgent Exams 04/28/18 22:01 Taken OB Transvaginal [US] Stat Exams 04/28/18 Taken Sodium Chloride 0.9% [Normal Saline] 1,000 ml Med 04/28/18 22:15 Active IV .BOLUS Medication Orders Sodium Chloride (Normal Saline) 1,000 mls @ 999 mls/hr IV .BOLUS MEHRAN Last Admin: 04/28/18 22:32 Dose: 999 mls/hr Labs: Laboratory Tests 04/28/18 04/28/18 04/28/18 Range/Units 22:01 22:01 22:22 WBC 9.5 (4.5-11.0) K/uL RBC 4.57 (3.30-5.50) M/uL Hgb 11.5 L (12.0-15.0) g/dL Hct 36.7 (36.0-48.0) % MCV 80 (80-98) fL MCH 25 L (27-31) pg MCHC 31 L (32-36) % Plt Count 266 (150-400) K/uL Neut % (Auto) 63 (36-66) % Lymph % (Auto) 26 (24-44) % [place] % (Auto) 9 H (2-6) % Eos % (Auto) 2 (2-4) % Baso % (Auto) 0 (0-1) % ESR 12 (0-25) mm/hr Sodium 140 (140-148) mmol/L Potassium 3.5 L (3.6-5.2) mmol/L Chloride 105 (100-108) mmol/L Carbon Dioxide 26 (21-32) mmol/L Anion Gap 12.5 (5.0-14.0) mmol/L BUN 10 (7-18) mg/dL Creatinine 0.7 (0.6-1.0) mg/dL Est Cr Clr Drug Dosing 102.51 mL/min Estimated GFR (MDRD) > 60 (>60) Glucose 114 H (74-106) mg/dL Calcium 9.1 (8.5-10.1) mg/dL Total Bilirubin 0.2 (0.2-1.0) mg/dL AST 11 L (15-37) U/L ALT 27 (12-78) U/L Alkaline Phosphatase 84 (46-116) U/L C-Reactive Protein 0.54 H (0.0-0.3) mg/dL Total Protein 6.8 (6.4-8.2) g/dL Albumin 3.4 (3.4-5.0) g/dL Globulin 3.4 (2.3-3.5) g/dL Albumin/Globulin Ratio 1.0 L (1.2-2.2) Lipase 188 (73-393) U/L Urine Color Yellow Urine Appearance Slightly cloudy Urine pH 5.0 (4.5-8.0) Ur Specific [place] 1.025 (1.008-1.030) Urine Protein Negative (NEGATIVE) mg/dL Urine Glucose (UA) Normal (NEGATIVE) mg/dL Urine Ketones Negative (NEGATIVE) mg/dL Urine Occult Blood Negative (NEGATIVE) Urine Nitrite Negative (NEGATIVE) Urine Bilirubin Negative (NEGATIVE) Urine Urobilinogen Normal (NORMAL) mg/dL Ur Leukocyte Esterase Small (NEGATIVE) Urine RBC Not seen (0-5) Urine WBC 0-5 (0-5) Ur Epithelial Cells Moderate Amorphous Sediment Not seen Urine Bacteria Few Urine Mucus Many Meds: Medications Generic Name Dose Route Start Last Admin Trade Name Freq PRN Reason Stop Dose Admin Sodium Chloride 1,000 mls @ 999 mls/hr 04/28/18 22:15 04/28/18 22:32 Normal Saline IV 999 mls/hr .BOLUS MEHRAN Administration Discontinued Medications Generic Name Dose Route Start Last Admin Trade Name Freq PRN Reason Stop Dose Admin Acetaminophen 650 mg 04/28/18 22:33 04/28/18 22:39 Tylenol PO 04/28/18 22:34 650 mg NOW ONE Administration Potassium Chloride 20 meq 04/28/18 23:13 04/28/18 23:32 Klor-Con M20 PO 04/28/18 23:14 20 meq ONETIME ONE Administration - Re-Assessments/Exams Free Text/Narrative Re-Assessment/Exam: 04/28/18 23:25 Patient was seen and examined shortly after arrival. Stable. Given Tylenol for pain. 1 L normal saline bolus, lab and imaging reviewed with the patient. Ultrasound shows 6 weeks and 3 days of . No heart stone was seen. No sign of ectopic. Adnexa are normal. No cyst. Normal blood flow. No sign of torsion. At this point unclear etiology for her symptom. Possible round ligament pain versus miscarriage especially with no heart tone seen however could be still elderly . I did not repeat beta-hCG because was done earlier today. At this point patient stated that she still have pain 6 out of 10. I did consulted with [facility] facility examiner for admission for observation tonight and pain control, and further management. She accepted admission for further management. Patient agrees with the plan. The stable for admission. Departure - Departure Time of Disposition: 23:28 Disposition: Refer to Observation Condition: Good Clinical Impression: Abdominal pain - Discharge Information Instructions: Abdominal Pain, Adult, [id number] Referrals: PCP,None [Primary Care Provider] - Forms: ED Department Discharge - My Orders Last 24 Hours: My Active Orders 04/28/18 OB Transvaginal [US] Stat 04/28/18 22:01 OB 1st Tri Sgl 1st Gest [US] Urgent 04/28/18 22:15 Sodium Chloride 0.9% [Normal Saline] 1,000 ml IV .BOLUS - Assessment/Plan Last 24 Hours: My Active Orders 04/28/18 OB Transvaginal [US] Stat 04/28/18 22:01 OB 1st Tri Sgl 1st Gest [US] Urgent 04/28/18 22:15 Sodium Chloride 0.9% [Normal Saline] 1,000 ml IV .BOLUS Plan: Admission for [facility] to [facility]
[2018-04-28] MEDS ORDERED: fentaNYL 100 MCG/2 ML SDV IVPUSH ONE (23:43)
[2018-04-28] MEDS ORDERED: Ondansetron 4 MG/2 ML SDV IVPUSH ONE (23:44)
--- NOTE | 2018-04-28 23:54 | PCM.HP ---
H&P History of Present Illness - General Date of Service: 04/28/18 Admit Problem/Dx: Admission Diagnosis/Problem Admission Diagnosis/Problem Threatened in early Source of Information: Patient History Limitations: Reports: No Limitations - History of Present Illness Initial Comments - Free Text/Narative: abdominal pain: this is a 22 year old , with new onset of abdominal pain started this evening at 7 or 8 pm. She report pain is at 7 or 8. denies any vaginal bleeding, spotting or discharge. no cramping. She had her first OB appt this afternoon with Dr. Zhang, OB [facility]. In ER she had labs and ultrasound. The ultrasound shows a 6 weeks products of conception without heartbeat, but then could be due to early gestation. Due to pain, will admit to observation for pain control and monitoring. Onset of Symptoms: Reports: Today Symptom Onset Date: 04/28/18 Symptom Onset Time: 19:00 Duration of Symptoms: Reports: Constant Location: Reports: Abdomen Quality: Reports: Sharp Severity: Moderate Improves with: Reports: None Worsens with: Reports: None Associated Symptoms: Reports: No Other Symptoms abdominal cramping Pain Score (Numeric/FACES): 6 - Related Data Allergies/Adverse Reactions: Allergies Allergy/AdvReac Type Severity Reaction Status Date / Time aripiprazole [From Abilify] Allergy Hives Verified 04/28/18 21:56 fluoxetine [From Prozac] Allergy Hives Verified 04/28/18 21:56 acetaminophen [From Percocet] AdvReac Vomiting Verified 04/28/18 21:56 oxycodone [From Percocet] AdvReac Vomiting Verified 04/28/18 21:56 Home Medications: Home Meds Lurasidone [Latuda] 40 mg PO DAILY 04/28/18 [History] Cmb#95/Iron/FA/DHA [ + Dha Combo Pack] 1 tab PO DAILY 04/28/18 [History] Past Medical History HEENT History: Reports: Impaired Vision Cardiovascular History: Reports: Arrhythmia Respiratory History: Reports: Asthma Gastrointestinal History: Reports: Cholelithiasis Genitourinary History: Reports: Renal Calculus PACKAGE CHECKER History: Reports: Musculoskeletal History: Reports: Back Pain, Chronic Neurological History: Reports: Concussion, Migraines, MS Psychiatric History: Reports: Anxiety, Depression, PTSD, Suicide Attempt Endocrine/Metabolic History: Reports: Obesity/BMI 30+ Hematologic History: Reports: Other (See Below) Other Hematologic History: blood clot Immunologic History: Reports: None Dermatologic History: Reports: Eczema - Infectious Disease History Infectious Disease History: Reports: Chicken Pox - Past Surgical History Head Surgeries/Procedures: Reports: None HEENT Surgical History: Reports: Tonsillectomy Cardiovascular Surgical History: Reports: None Respiratory Surgical History: Reports: None GI Surgical History: Reports: Cholecystectomy Female Surgical History: Reports: Section Endocrine Surgical History: Reports: None Neurological Surgical History: Reports: None Musculoskeletal Surgical History: Reports: None Dermatological Surgical History: Reports: None Social & Family History - Tobacco Use Smoking Status *Q: Current Every Day Smoker Years of Tobacco use: 6 Packs/Tins Daily: 0.2 - Caffeine Use Caffeine Use: Reports: Coffee, Soda - Recreational Drug Use Recreational Drug Use: No H&P Review of Systems - Review of Systems: Review Of Systems: See Below General: Reports: No Symptoms HEENT: Reports: No Symptoms Pulmonary: Reports: No Symptoms Cardiovascular: Reports: No Symptoms Gastrointestinal: Reports: Abdominal Pain Genitourinary: Reports: No Symptoms Musculoskeletal: Reports: No Symptoms Skin: Reports: No Symptoms Psychiatric: Reports: No Symptoms Neurological: Reports: No Symptoms Hematologic/Lymphatic: Reports: No Symptoms Immunologic: Reports: No Symptoms Exam - Exam Exam: See Below - Vital Signs Vital Signs: Last Vital Signs Temp 36.9 C 04/28/18 21:56 Pulse 97 04/28/18 21:56 Resp 20 04/28/18 21:56 BP 151/93 H 04/28/18 21:56 Pulse Ox 98 04/28/18 21:56 Weight: 162.386 kg - Exam General: Alert, Oriented, Cooperative, Other (sitting upright on stretcher due to pain otherwise not in acute distress) HEENT: Conjunctiva Clear, EOMI, Hearing Intact Neck: Supple, Trachea Midline Lungs: Clear to Auscultation, Normal Respiratory Effort Cardiovascular: Regular Rate, Regular Rhythm, Normal S1, Normal S2 GI/Abdominal Exam: Normal Bowel Sounds, Soft, Other (very large abdomen, report pain in low abdomen.) (Female) Exam: Deferred (evaluated by Ultrasound with transvaginal, no bleeding noted) Rectal (Female) Exam: Deferred Extremities: Normal Inspection, Normal Range of Motion, Non-Tender Skin: Warm, Dry, Intact Neurological: Reflexes Equal Bilateral, Strength Equal Bilateral Neuro Extensive - Mental Status: Alert, Oriented x3, Normal Mood/Affect, Normal Cognition Psychiatric: Alert, Normal Affect, Normal Mood - Patient Data Lab Results Last 24 hrs: Laboratory Results - last 24 hr 04/28/18 04/28/18 04/28/18 Range/Units 22:01 22:01 22:22 WBC 9.5 (4.5-11.0) K/uL RBC 4.57 (3.30-5.50) M/uL Hgb 11.5 L (12.0-15.0) g/dL Hct 36.7 (36.0-48.0) % MCV 80 (80-98) fL MCH 25 L (27-31) pg MCHC 31 L (32-36) % Plt Count 266 (150-400) K/uL Neut % (Auto) 63 (36-66) % Lymph % (Auto) 26 (24-44) % [place] % (Auto) 9 H (2-6) % Eos % (Auto) 2 (2-4) % Baso % (Auto) 0 (0-1) % ESR 12 (0-25) mm/hr Sodium 140 (140-148) mmol/L Potassium 3.5 L (3.6-5.2) mmol/L Chloride 105 (100-108) mmol/L Carbon Dioxide 26 (21-32) mmol/L Anion Gap 12.5 (5.0-14.0) mmol/L BUN 10 (7-18) mg/dL Creatinine 0.7 (0.6-1.0) mg/dL Est Cr Clr Drug Dosing 102.51 mL/min Estimated GFR (MDRD) > 60 (>60) Glucose 114 H (74-106) mg/dL Calcium 9.1 (8.5-10.1) mg/dL Total Bilirubin 0.2 (0.2-1.0) mg/dL AST 11 L (15-37) U/L ALT 27 (12-78) U/L Alkaline Phosphatase 84 (46-116) U/L C-Reactive Protein 0.54 H (0.0-0.3) mg/dL Total Protein 6.8 (6.4-8.2) g/dL Albumin 3.4 (3.4-5.0) g/dL Globulin 3.4 (2.3-3.5) g/dL Albumin/Globulin Ratio 1.0 L (1.2-2.2) Lipase 188 (73-393) U/L Urine Color Yellow Urine Appearance Slightly cloudy Urine pH 5.0 (4.5-8.0) Ur Specific [place] 1.025 (1.008-1.030) Urine Protein Negative (NEGATIVE) mg/dL Urine Glucose (UA) Normal (NEGATIVE) mg/dL Urine Ketones Negative (NEGATIVE) mg/dL Urine Occult Blood Negative (NEGATIVE) Urine Nitrite Negative (NEGATIVE) Urine Bilirubin Negative (NEGATIVE) Urine Urobilinogen Normal (NORMAL) mg/dL Ur Leukocyte Esterase Small (NEGATIVE) Urine RBC Not seen (0-5) Urine WBC 0-5 (0-5) Ur Epithelial Cells Moderate Amorphous Sediment Not seen Urine Bacteria Few Urine Mucus Many Result Diagrams: 04/28/18 22:01 04/28/18 22:01 - Problem List (1) Threatened in early SNOMED Code(s): 56788160 ICD Code: O20.0 - THREATENED Status: Acute Priority: High Current Visit: Yes (2) Abdominal pain SNOMED Code(s): 19744344 ICD Code: R10.9 - UNSPECIFIED ABDOMINAL PAIN Status: Acute Priority: High Current Visit: Yes Qualifiers: Abdominal location: lower abdomen, unspecified Qualified Code(s): R10.30 - Lower abdominal pain, unspecified Problem List Initiated/Reviewed/Updated: Yes Orders Last 24hrs: Active Orders 24 hr Category Date Time Status Patient Status Manage Transfer [TRANSFER] Routine ADT 04/28/18 23:45 Ordered OB 1st Tri Sgl 1st Gest [US] Urgent Exams 04/28/18 22:01 Taken OB Transvaginal [US] Stat Exams 04/28/18 Taken Sodium Chloride 0.9% [Normal Saline] 1,000 ml Med 04/28/18 22:15 Active IV .BOLUS Resuscitation Status Routine Resus Stat 04/28/18 23:46 Ordered Medication Orders Sodium Chloride (Normal Saline) 1,000 mls @ 999 mls/hr IV .BOLUS MEHRAN Last Admin: 04/28/18 22:32 Dose: 999 mls/hr Assessment/Plan Comment:: ASSESSMENT / PLAN -This is a 22 year old female with new onset of abdominal starting at 7 pm. She was seen in ER, evaluated and discharged to home. She returns to ER because she can not tolerate the pain. She was given tylenol. denies any vaginal bleeding, spotting or discharge. Had her first OB appointment this afternoon. No concerns at this time. She is a smoker. She has a normal CBC, Chemistry, urine results. Transvaginal ultrasound shows a 6 weeks gestation without heart tones, no active bleeding is noted. She has her gallbladder removed. history of 1.5 years ago. Threaten in early . discussed with Ms. Traore will monitor overnight, medicate for pain, IV fluids. Re-evaluate in am, if symptoms resolved will discharge to home with follow up with OB Provider. Ms. Traore and her Mother agree with plan of care. -Admit to [address] [place] [address] for further monitoring -IV fluids for rehydration NS at 125 mL per hour -Advise to notify nurses of any abdominal pain or other symptoms -pain medication ordered -And a.m. labs: CBC, BMP Maintenance issues -Orders home meds: ordered -Nutrition: Regular diet -Chang catheter not indicated at this time -DVT: ambulate -GI Prophalaxis; Protonix CODE STATUS: Full Admission status: Admit to Observation -I expect this patient to stay less than 24 hours, not to exceed 96 hours for evaluation and management of this problem. Disposition: home Primary care provider: Dr. Zhang, OB, [facility] Hospitalist: Dr. Foote
--- NOTE | 2018-04-28 23:57 | CRLUS ---
INDICATION: Pelvic Pain TECHNIQUE: Ultrasound OB pelvis transabdominal and transvaginal. Real time hill scale imaging of the pelvis was performed. COMPARISON: None FINDINGS: Sonographic imaging demonstrates a round cystic structure in the endometrium consistent a gestational sac with a mean sac diameter of 1.5 cm which corresponds to a gestational age 6 weeks 2 days. Yolk sac and pole are not visualized. The right ovary measures 3.1 x 2.1 x 3.1 cm and the left ovary measures 1.6 x 2.2 x 2.1 cm. Both ovaries are visualized only on transabdominal imaging. No significant free fluid in the cul-de-sac. IMPRESSION: 1. Gestational sac, without visualization of yolk sac or pole. This may represent early . Recommend correlation with serial HCG and consideration for repeat ultrasound. 2. Normal sonographic appearance of the ovaries. Dictated by Melisa Borden MD @ 04/28/2018 11:55:50 PM Dictated by: Melisa Borden MD @ 04/28/2018 23:55:58 (Electronically Signed)
[2018-04-29] MEDS ORDERED: Ondansetron 4 MG Tab.DIS PO PRN (00:27)
[2018-04-29] MEDS: Acetaminophen/HYDROcodone 325-5 MG Tab PO PRN ×2 (00:59→08:18)
[2018-04-29] MEDS: Sodium Chloride 0.9% 1,000 ML IV SCH ×2 (01:00→08:30)
[2018-04-29] MEDS: fentaNYL 100 MCG/2 ML SDV IVPUSH PRN ×2 (03:35→10:43)
[2018-04-29] MEDS ORDERED: Pantoprazole 40 MG Tab.CR PO SCH (07:30)
[2018-04-29] MEDS ORDERED: Lurasidone 40 MG Tab PO SCH (09:00)
[2018-04-29] MEDS ORDERED: Prenatal Multivitamin with Calcium/Folic Acid/Iron Tab PO SCH (09:00)
--- NOTE | 2018-04-29 11:14 | PCM.DCSUM1 ---
Discharge Summary - Hospital Course Brief History: Ms. Meyer is a 22-year-old woman who was admitted to observation status through the emergency department for evaluation and monitoring of possible threatened and abdominal pain. - Discharge Data Discharge Date: 04/29/18 Discharge Disposition: Home, Self-Care 01 Condition: Fair - Discharge Diagnosis/Problem(s) (1) Abdominal pain SNOMED Code(s): 32533407 ICD Code: R10.9 - UNSPECIFIED ABDOMINAL PAIN Status: Acute Priority: High Current Visit: Yes Qualifiers: Abdominal location: lower abdomen, unspecified Qualified Code(s): R10.30 - Lower abdominal pain, unspecified (2) Threatened in early SNOMED Code(s): 25620318 ICD Code: O20.0 - THREATENED Status: Acute Priority: High Current Visit: Yes - Patient Summary/Data Hospital Course: Ms. Traore is a 22 year old , with new onset of abdominal pain started this evening at 7 or 8 pm. She report pain is at 7 or 8. denies any vaginal bleeding, spotting or discharge. no cramping. She had her first OB appt this afternoon with Dr. Zhang, OB [facility]. In ER she had labs and ultrasound. The ultrasound shows a 6 weeks products of conception without heartbeat, but then could be due to early gestation. On admission she was given IV fluids for hydration and pain medication as needed. Her plasterer spray gun did contact her in the morning of discharge and presented options for further evaluation and management. One option would be to proceed with D&C which the patient would like to hold on. Another option is to monitor her again next week with ultrasound and follow-up with plasterer spray gun. She has chosen this option and will be discharged home. She will be given a limited amount of pain medication, appointment is already scheduled with the plasterer spray gun for ultrasound next week. She will return to the emergency department preferably in [place] so she can see her plasterer spray gun, if symptoms worsen or she notes significant changes. Activity will be as tolerated and she will resume her usual diet. - Patient Instructions Diet: Usual Diet as Tolerated Activity: As Tolerated Other/Special Instructions: Follow-up with plasterer spray gun and ultrasound next week. If symptoms worsen or change in anyway return to the emergency department for reevaluation - Discharge Plan *PRESCRIPTION DRUG MONITORING PROGRAM REVIEWED*: Not Applicable *COPY OF PRESCRIPTION DRUG MONITORING REPORT IN PATIENT TRISTA: Not Applicable Prescriptions/Med Rec: Acetaminophen/HYDROcodone [[place] 325-5 MG] 1 tab PO Q4H PRN #16 tablet PRN Reason: Pain Home Medications: Home Meds Lurasidone [Latuda] 40 mg PO DAILY 04/28/18 [History] Cmb#95/Iron/FA/DHA [ + Dha Combo Pack] 1 tab PO DAILY 04/28/18 [History] Acetaminophen/HYDROcodone [[place] 325-5 MG] 1 tab PO Q4H PRN #16 tablet 04/29/18 [Rx] Patient Handouts: Abdominal Pain, Adult, [id number] Referrals: PCP,None [Primary Care Provider] - - Discharge Summary/Plan Comment DC Time >30 min.: No - Patient Data Vitals - Most Recent: Last Vital Signs Temp 95.6 F 04/29/18 07:00 Pulse 69 04/29/18 07:00 Resp 18 04/29/18 07:00 BP 107/41 L 04/29/18 07:00 Pulse Ox 99 04/29/18 07:00 Weight - Most Recent: 364 lb I&O - Last 24 hours: Intake & Output 04/28/18 04/29/18 04/29/18 22:59 06:59 14:59 Intake Total 1038 480 Balance 1038 480 Lab Results - Last 24 hrs: Laboratory Results - last 24 hr 04/28/18 04/28/18 04/28/18 Range/Units 22:01 22:01 22:22 WBC 9.5 (4.5-11.0) K/uL RBC 4.57 (3.30-5.50) M/uL Hgb 11.5 L (12.0-15.0) g/dL Hct 36.7 (36.0-48.0) % MCV 80 (80-98) fL MCH 25 L (27-31) pg MCHC 31 L (32-36) % Plt Count 266 (150-400) K/uL Neut % (Auto) 63 (36-66) % Lymph % (Auto) 26 (24-44) % [place] % (Auto) 9 H (2-6) % Eos % (Auto) 2 (2-4) % Baso % (Auto) 0 (0-1) % ESR 12 (0-25) mm/hr Sodium 140 (140-148) mmol/L Potassium 3.5 L (3.6-5.2) mmol/L Chloride 105 (100-108) mmol/L Carbon Dioxide 26 (21-32) mmol/L Anion Gap 12.5 (5.0-14.0) mmol/L BUN 10 (7-18) mg/dL Creatinine 0.7 (0.6-1.0) mg/dL Est Cr Clr Drug Dosing 102.51 mL/min Estimated GFR (MDRD) > 60 (>60) Glucose 114 H (74-106) mg/dL Calcium 9.1 (8.5-10.1) mg/dL Total Bilirubin 0.2 (0.2-1.0) mg/dL AST 11 L (15-37) U/L ALT 27 (12-78) U/L Alkaline Phosphatase 84 (46-116) U/L C-Reactive Protein 0.54 H (0.0-0.3) mg/dL Total Protein 6.8 (6.4-8.2) g/dL Albumin 3.4 (3.4-5.0) g/dL Globulin 3.4 (2.3-3.5) g/dL Albumin/Globulin Ratio 1.0 L (1.2-2.2) Lipase 188 (73-393) U/L Urine Color Yellow Urine Appearance Slightly cloudy Urine pH 5.0 (4.5-8.0) Ur Specific [place] 1.025 (1.008-1.030) Urine Protein Negative (NEGATIVE) mg/dL Urine Glucose (UA) Normal (NEGATIVE) mg/dL Urine Ketones Negative (NEGATIVE) mg/dL Urine Occult Blood Negative (NEGATIVE) Urine Nitrite Negative (NEGATIVE) Urine Bilirubin Negative (NEGATIVE) Urine Urobilinogen Normal (NORMAL) mg/dL Ur Leukocyte Esterase Small (NEGATIVE) Urine RBC Not seen (0-5) Urine WBC 0-5 (0-5) Ur Epithelial Cells Moderate Amorphous Sediment Not seen Urine Bacteria Few Urine Mucus Many 04/29/18 04/29/18 Range/Units 05:17 05:17 WBC 7.4 (4.5-11.0) K/uL RBC 4.11 (3.30-5.50) M/uL Hgb 10.1 L (12.0-15.0) g/dL Hct 33.6 L (36.0-48.0) % MCV 82 (80-98) fL MCH 25 L (27-31) pg MCHC 30 L (32-36) % Plt Count 239 (150-400) K/uL Neut % (Auto) 55 (36-66) % Lymph % (Auto) 32 (24-44) % [place] % (Auto) 11 H (2-6) % Eos % (Auto) 2 (2-4) % Baso % (Auto) 0 (0-1) % ESR (0-25) mm/hr Sodium 140 (140-148) mmol/L Potassium 4.1 (3.6-5.2) mmol/L Chloride 107 (100-108) mmol/L Carbon Dioxide 25 (21-32) mmol/L Anion Gap 8.2 (5.0-14.0) mmol/L BUN 11 (7-18) mg/dL Creatinine 0.7 (0.6-1.0) mg/dL Est Cr Clr Drug Dosing 125.01 mL/min Estimated GFR (MDRD) > 60 (>60) Glucose 98 (74-106) mg/dL Calcium 8.5 (8.5-10.1) mg/dL Total Bilirubin (0.2-1.0) mg/dL AST (15-37) U/L ALT (12-78) U/L Alkaline Phosphatase (46-116) U/L C-Reactive Protein (0.0-0.3) mg/dL Total Protein (6.4-8.2) g/dL Albumin (3.4-5.0) g/dL Globulin (2.3-3.5) g/dL Albumin/Globulin Ratio (1.2-2.2) Lipase (73-393) U/L Urine Color Urine Appearance Urine pH (4.5-8.0) Ur Specific [place] (1.008-1.030) Urine Protein (NEGATIVE) mg/dL Urine Glucose (UA) (NEGATIVE) mg/dL Urine Ketones (NEGATIVE) mg/dL Urine Occult Blood (NEGATIVE) Urine Nitrite (NEGATIVE) Urine Bilirubin (NEGATIVE) Urine Urobilinogen (NORMAL) mg/dL Ur Leukocyte Esterase (NEGATIVE) Urine RBC (0-5) Urine WBC (0-5) Ur Epithelial Cells Amorphous Sediment Urine Bacteria Urine Mucus Med Orders - Current: Current Medications Hydrocodone Bitart/Acetaminophen ([place] 325-5 Mg) 1 tab PO Q4H PRN PRN Reason: Pain (moderate 4-6) Last Admin: 04/29/18 08:18 Dose: 1 tab Fentanyl (Sublimaze) 50 mcg IVPUSH Q6H PRN PRN Reason: Pain (severe 7-10) Last Admin: 04/29/18 10:43 Dose: 50 mcg Sodium Chloride (Normal Saline) 1,000 mls @ 125 mls/hr IV ASDIRECTED [facility] Last Admin: 04/29/18 08:30 Dose: 125 mls/hr Lurasidone HCl (Latuda) 40 mg PO DAILY [facility] Last Admin: 04/29/18 08:28 Dose: Not Given Ondansetron HCl (Zofran Odt) 4 mg PO Q6H PRN PRN Reason: Nausea able to take PO Last Admin: 04/29/18 03:36 Dose: 4 mg Pantoprazole Sodium (Protonix) 40 mg PO ACBREAKFAST [facility] Last Admin: 04/29/18 08:17 Dose: 40 mg Prenat Multivit/[place]/Iron/Folic Ac ( Plus Iron) 1 each PO DAILY [facility] Last Admin: 04/29/18 08:17 Dose: 1 each Discontinued Medications Acetaminophen (Tylenol) 650 mg PO NOW ONE Stop: 04/28/18 22:34 Last Admin: 04/28/18 22:39 Dose: 650 mg Fentanyl (Sublimaze) 50 mcg IVPUSH ONETIME ONE Stop: 04/28/18 23:44 Last Admin: 04/28/18 23:55 Dose: 50 mcg Sodium Chloride (Normal Saline) 1,000 mls @ 999 mls/hr IV .BOLUS [facility] Last Admin: 04/28/18 22:32 Dose: 999 mls/hr Influenza Virus Vaccine (Fluzone Quad 0701-3788 Syringe) 60 mcg IM .ONCE ONE Stop: 04/29/18 01:01 Last Admin: 04/29/18 08:26 Dose: 60 mcg Ondansetron HCl (Zofran) 4 mg IVPUSH ONETIME ONE Stop: 04/28/18 23:45 Last Admin: 04/28/18 23:55 Dose: 4 mg Potassium Chloride (Klor-Con M20) 20 meq PO ONETIME ONE Stop: 02/19/19 23:14 Last Admin: 04/28/18 23:32 Dose: 20 meq - Exam General: Reports: Alert, Oriented, Cooperative, Mild Distress Lungs: Reports: Clear to Auscultation, Normal Respiratory Effort Cardiovascular: Reports: Regular Rate, Regular Rhythm, No Murmurs GI/Abdominal Exam: Soft, No Organomegaly, Tender. No: Distended, Guarding, Rigid, Rebound
--- NOTE | 2018-04-30 09:08 | CRLUS ---
Final Report: INDICATION: Pelvic Pain TECHNIQUE: Ultrasound OB pelvis transabdominal and transvaginal. Real time hill scale imaging of the pelvis was performed. COMPARISON: None FINDINGS: Sonographic imaging demonstrates a round cystic structure in the endometrium consistent a gestational sac with a mean sac diameter of 1.5 cm which corresponds to a gestational age 6 weeks 2 days. Yolk sac and pole are not visualized. The right ovary measures 3.1 x 2.1 x 3.1 cm and the left ovary measures 1.6 x 2.2 x 2.1 cm. Both ovaries are visualized only on transabdominal imaging. No significant free fluid in the cul-de-sac. IMPRESSION: 1. Gestational sac, without visualization of yolk sac or pole. This may represent early . Recommend correlation with serial HCG and consideration for repeat ultrasound. 2. Normal sonographic appearance of the ovaries. Dictated by Melisa Borden MD @ 04/28/2018 11:55:50 PM Dictated by: Melisa Borden MD @ 04/28/2018 23:55:58 Signed by: Melisa Borden MD @04/28/2018 11:55:58 PM (Electronic Signature) MTDD
== END 2018-04-29 12:50 | disposition home or self-care (01) ==
LOC: JP.ED 21:37 → JP.MS 23:45
PROVIDERS: ADMIT Hospitalist; ATTEND Hospitalist
DX: O99.89 Other specified diseases and conditions complicating pregnancy, childbirth and the puerperium (principal); R10.30 Lower abdominal pain, unspecified; O99.331 Smoking (tobacco) complicating pregnancy, first trimester; F17.210 Nicotine dependence, cigarettes, uncomplicated; Z88.8 Allergy status to other drugs, medicaments and biological substances; Z88.5 Allergy status to narcotic agent; Z23 Encounter for immunization; Z3A.14 14 weeks gestation of pregnancy
CPT/HCPCS: 36415; 76801; 76817; 80048; 80053; 81001; 83690; 85025; 85651; 86140; 90686; 96361; 96374; 96375; 99285; A9270; G0008; J2405; J3010; J7030; J7040; 96376; G0378

== ENCOUNTER 2018-05-04 17:19 | Emergency (ER) | payer MEDICAID ==
[2018-05-04] MEDS ORDERED: fentaNYL 100 MCG/2 ML SDV IM ONE (19:09)
--- NOTE | 2018-05-04 19:14 | EDM.PDOC ---
ED HPI GENERAL MEDICAL PROBLEM - General Chief Complaint: Flank Pain Stated Complaint: BACK PAIN NOT AN ACCIDENT Time Seen by Provider: 05/04/18 18:51 Source of Information: Reports: Patient, Family, Old Records, RN Notes Reviewed History Limitations: Reports: No Limitations - History of Present Illness INITIAL COMMENTS - FREE TEXT/NARRATIVE: 22-year-old female presents emergency department day complaint of left flank pain, she is a 2, para 1 was recently admitted to hospital on April 29 with concerns about early miscarriage has followed up with her OB ultrasound was done which did not reveal any cardiac activity ultrasound was done last week beta-hCG at that time was around 12,000 which is low for a 7 week she denies any vaginal bleeding or discharge describes the pain is constant starts around the back CVA area radiates down the front she does have a history of nephrolithiasis Left Flank Pain Score (Numeric/FACES): 7 - Related Data Allergies Allergy/AdvReac Type Severity Reaction Status Date / Time aripiprazole [From Abilify] Allergy Hives Verified 05/04/18 18:32 fluoxetine [From Prozac] Allergy Hives Verified 05/04/18 18:32 oxycodone [From Percocet] AdvReac Vomiting Verified 05/04/18 18:32 Home Meds: Home Meds Lurasidone [Latuda] 40 mg PO DAILY 04/28/18 [History] Cmb#95/Iron/FA/DHA [ + Dha Combo Pack] 1 tab PO DAILY 04/28/18 [History] Acetaminophen/HYDROcodone [[place] 325-5 MG] 1 tab PO Q4H PRN #16 tablet 04/29/18 [Rx] Past Medical History HEENT History: Reports: Impaired Vision Cardiovascular History: Reports: Arrhythmia Respiratory History: Reports: Asthma Gastrointestinal History: Reports: Cholelithiasis Genitourinary History: Reports: Renal Calculus 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: Musculoskeletal History: Reports: Back Pain, Chronic Neurological History: Reports: Concussion, Migraines, MS Psychiatric History: Reports: Anxiety, Depression, PTSD, Suicide Attempt Endocrine/Metabolic History: Reports: Obesity/BMI 30+ Hematologic History: Reports: Other (See Below) Other Hematologic History: blood clot Dermatologic History: Reports: Eczema - Infectious Disease History Infectious Disease History: Reports: Chicken Pox - Past Surgical History HEENT Surgical History: Reports: Tonsillectomy GI Surgical History: Reports: Cholecystectomy Female Surgical History: Reports: Section Social & Family History - Family History Family Medical History: Noncontributory - Tobacco Use Smoking Status *Q: Light Tobacco Smoker Years of Tobacco use: 10 Packs/Tins Daily: 0.2 - Caffeine Use Caffeine Use: Reports: Coffee, Energy Drinks, Soda - Recreational Drug Use Recreational Drug Use: No ED ROS GENERAL - Review of Systems Review Of Systems: See Below Constitutional: Reports: No Symptoms Respiratory: Reports: No Symptoms Cardiovascular: Reports: No Symptoms GI/Abdominal: Reports: Abdominal Pain : Reports: Flank Pain. Denies: Irregular Menses ED EXAM, RENAL/ - Physical Exam Exam: See Below Exam Limited By: No Limitations General Appearance: Alert, WD/WN, No Apparent Distress Respiratory/Chest: No Respiratory Distress GI/Abdominal: Normal Bowel Sounds, Soft, Tender (Along the left flank down into the groin), Other (Difficult to examine secondary to body habitus) Course - Vital Signs Last Recorded V/S: Last Vital Signs Temp 98.6 F 05/04/18 18:31 Pulse 78 05/04/18 19:16 Resp 19 05/04/18 19:16 BP 150/83 H 05/04/18 19:16 Pulse Ox 97 05/04/18 19:16 - Orders/Labs/Meds Labs: Laboratory Tests 05/04/18 05/04/18 05/04/18 Range/Units 18:21 19:21 19:21 WBC 7.9 (4.5-11.0) K/uL RBC 4.43 (3.30-5.50) M/uL Hgb 11.0 L (12.0-15.0) g/dL Hct 36.0 (36.0-48.0) % MCV 81 (80-98) fL MCH 25 L (27-31) pg MCHC 31 L (32-36) % Plt Count 251 (150-400) K/uL Neut % (Auto) 63 (36-66) % Lymph % (Auto) 28 (24-44) % Hamblen % (Auto) 8 H (2-6) % Eos % (Auto) 2 (2-4) % Baso % (Auto) 0 (0-1) % Sodium 142 (140-148) mmol/L Potassium 4.2 (3.6-5.2) mmol/L Chloride 107 (100-108) mmol/L Carbon Dioxide 25 (21-32) mmol/L Anion Gap 10.1 (5.0-14.0) mmol/L BUN 7 (7-18) mg/dL Creatinine 0.6 (0.6-1.0) mg/dL Est Cr Clr Drug Dosing 145.85 mL/min Estimated GFR (MDRD) > 60 (>60) Glucose 85 (74-106) mg/dL Calcium 8.9 (8.5-10.1) mg/dL Total Bilirubin 0.3 (0.2-1.0) mg/dL AST 11 L (15-37) U/L ALT 31 (12-78) U/L Alkaline Phosphatase 82 (46-116) U/L Total Protein 6.7 (6.4-8.2) g/dL Albumin 3.3 L (3.4-5.0) g/dL Globulin 3.4 (2.3-3.5) g/dL Albumin/Globulin Ratio 1.0 L (1.2-2.2) HCG, Quant 68519 H (0-6) mIU/mL Urine Color Yellow Urine Appearance Cloudy Urine pH 6.0 (4.5-8.0) Ur Specific Aladdin 1.015 (1.008-1.030) Urine Protein Negative (NEGATIVE) mg/dL Urine Glucose (UA) Normal (NEGATIVE) mg/dL Urine Ketones Negative (NEGATIVE) mg/dL Urine Occult Blood Negative (NEGATIVE) Urine Nitrite Negative (NEGATIVE) Urine Bilirubin Negative (NEGATIVE) Urine Urobilinogen Normal (NORMAL) mg/dL Ur Leukocyte Esterase Negative (NEGATIVE) Urine RBC 0-5 (0-5) Urine WBC 0-5 (0-5) Ur Epithelial Cells Moderate Amorphous Sediment Not seen Urine Bacteria Few Urine Mucus Rare Meds: Medications Discontinued Medications Generic Name Dose Route Start Last Admin Trade Name Freq PRN Reason Stop Dose Admin Fentanyl 50 mcg 05/04/18 19:09 05/04/18 19:15 Sublimaze IM 05/04/18 19:10 50 mcg ONETIME ONE Administration Hydromorphone HCl 1 mg 05/04/18 20:12 05/04/18 20:49 Dilaudid IM 05/04/18 20:13 1 mg ONETIME ONE Administration Departure - Departure Time of Disposition: 21:36 Disposition: Home, Self-Care 01 Condition: Fair Clinical Impression: Abdominal pain Qualifiers: Abdominal location: left lower quadrant Qualified Code(s): R10.32 - Left lower quadrant pain - Discharge Information Referrals: Roberto Betancourt PA [Primary Care Provider] - Forms: ED Department Discharge Additional Instructions: Use hydrocodone as needed for pain control, please follow-up with your CHIEF MEDICAL DIRECTOR next week for further treatment, call or return to the emergency department worsening of symptoms - Assessment/Plan Plan: Assessment Acuity = acute Site and laterality = left flank pain complicated in a patient with missed Etiology = unknown etiology Manifestations = none Location of injury = Home Lab values = [hemoglobin low at 11.0 consistent normochromic anemia, CMP unremarkable beta-hCG down 11,323 this is from 12,000 on 6 days prior, CT scan shows sac in the uterus, and 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
[2018-05-04] MEDS ORDERED: HYDROmorphone 1 MG/ML Syringe IM ONE (20:12)
--- NOTE | 2018-05-04 21:00 | CRLCT ---
INDICATION: Left flank pain. demise. COMPARISON: Ultrasound of the pelvis from 04/28/2018 TECHNIQUE: CT examination of the abdomen and pelvis was performed without contrast enhancement using 3 mm thick axial sections from the lung bases through the pubic symphysis. Oral contrast was not administered. Please note that all CT scans at this facility use dose modulation, iterative reconstruction, and/or weight-based dosing when appropriate to reduce radiation dose to as low as reasonably achievable. FINDINGS: In the abdomen, the unenhanced liver, and adrenals are normal in appearance. The spleen is moderately enlarged, measuring 16.1 centimeters in length. The etiology is uncertain. There is a cystic region in the medial pancreatic head measuring 1.9 centimeters in diameter. The appearance is nonspecific. This could be a small pseudocyst The unenhanced kidneys are normal in appearance. The gallbladder is normal in appearance. The abdominal aorta is normal in caliber with no sign of dilatation. There is no sign of retroperitoneal mass or adenopathy. The stomach, loops of small bowel, and colon in the abdomen are normal in appearance. In the pelvis, the appendix is normal in appearance with no sign of inflammatory process. The loops of small bowel and colon in the pelvis are normal in appearance. The uterus contains a 2.0 centimeter low-density region in the left fundus, consistent with the small gestational sac seen on the recent ultrasound of the pelvis. The adnexal regions are normal in appearance. The urinary bladder is normal in appearance. There is no sign of pelvic or inguinal mass or adenopathy. The lung bases are clear. Bilateral L5 pars interarticularis defects are seen with very minimal anterior subluxation of L5 on S1. There is mild L5-S1 disc degenerative disease. IMPRESSION: Nothing seen in the urinary system to explain the patient`s left flank pain. No sign of any abnormality of the left urinary system with no sign of obstruction or calculi. CT of the abdomen shows moderate splenomegaly, with the spleen measuring up to 16.1 centimeters in length. The etiology is uncertain. 1.9 centimeter cyst in the pancreatic head, nonspecific. If necessary, this could be further evaluated with triple phase CT of the pancreas. CT of the pelvis shows normal appearance of the sigmoid colon. No sign of diverticulitis or diverticulosis. 2.0 centimeter cystic region in the left uterine fundus consistent with gestational sac seen on the recent ultrasound of the pelvis. Please note that all CT scans at this facility use dose modulation, iterative reconstruction, and/or weight-based dosing when appropriate to reduce radiation dose to as low as reasonably achievable. Dictated by Efren Pulliam MD @ May 04 2018 8:50PM Signed by Dr. Efren Pulliam @ May 04 2018 8:59PM
== END 2018-05-04 21:52 | disposition home or self-care (01) ==
LOC: JP.ED 17:19
DX: O02.1 Missed abortion (principal); F17.210 Nicotine dependence, cigarettes, uncomplicated; Z90.49 Acquired absence of other specified parts of digestive tract; Z98.890 Other specified postprocedural states; Z88.6 Allergy status to analgesic agent; Z88.8 Allergy status to other drugs, medicaments and biological substances
CPT/HCPCS: 36415; 74176; 80053; 81001; 84702; 85025; 96372; 99284; J1170; J3010

== ENCOUNTER 2018-08-10 21:47 | Emergency (ER) | payer MEDICAID ==
--- NOTE | 2018-08-10 22:50 | EDM.PDOC ---
ED HPI GENERAL MEDICAL PROBLEM - General Chief Complaint: General Stated Complaint: ILLNESS Time Seen by Provider: 08/10/18 22:47 Source of Information: Reports: Patient History Limitations: Reports: No Limitations - History of Present Illness INITIAL COMMENTS - FREE TEXT/NARRATIVE: pt states the cuff for the plasmaphoreus has moved down and it is now painful. She noticed that it moved in Apr but she was not having pain until now. Onset: Gradual, Other ( This has been going on for the past 2-3 days. ) Duration: Hour(s): Location: Reports: Chest Associated Symptoms: Reports: No Other Symptoms Right Chest Pain Score (Numeric/FACES): 6 - Related Data Allergies Allergy/AdvReac Type Severity Reaction Status Date / Time aripiprazole [From Abilify] Allergy Hives Verified 08/10/18 21:59 fluoxetine [From Prozac] Allergy Hives Verified 08/10/18 21:59 oxycodone [From Percocet] AdvReac Vomiting Verified 08/10/18 21:59 Home Meds: Home Meds Venlafaxine [Effexor XR] 75 mg PO DAILY 08/10/18 [History] traZODone HCl [Trazodone HCl] 1 - 3 tab PO BEDTIME 08/10/18 [History] Past Medical History HEENT History: Reports: Impaired Vision, Other (See Below) Other HEENT History: optic neuritis Cardiovascular History: Reports: Arrhythmia Respiratory History: Reports: Asthma Gastrointestinal History: Reports: Cholelithiasis Genitourinary History: Reports: Renal Calculus 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: Musculoskeletal History: Reports: Back Pain, Chronic Neurological History: Reports: Concussion, Migraines, MS Psychiatric History: Reports: Anxiety, Depression, Psych Hospitalization(s), PTSD, Suicide Attempt Endocrine/Metabolic History: Reports: Obesity/BMI 30+, Vitamin D Deficiency Hematologic History: Reports: Other (See Below) Other Hematologic History: blood clot Dermatologic History: Reports: Eczema - Infectious Disease History Infectious Disease History: Reports: Chicken Pox - Past Surgical History Head Surgeries/Procedures: Reports: None HEENT Surgical History: Reports: Tonsillectomy GI Surgical History: Reports: Cholecystectomy Female Surgical History: Reports: Section Social & Family History - Family History Family Medical History: Noncontributory - Tobacco Use Smoking Status *Q: Current Every Day Smoker Years of Tobacco use: 15 Packs/Tins Daily: 0.3 - Caffeine Use Caffeine Use: Reports: None - Recreational Drug Use Recreational Drug Use: Yes Drug Use in Last 12 Months: Yes Recreational Drug Type: Reports: Marijuana/Hashish ED ROS GENERAL - Review of Systems Review Of Systems: See Below Constitutional: Reports: No Symptoms HEENT: Reports: No Symptoms Respiratory: Reports: No Symptoms Cardiovascular: Reports: No Symptoms Endocrine: Reports: No Symptoms GI/Abdominal: Reports: No Symptoms : Reports: No Symptoms Musculoskeletal: Reports: Other (pt has pain in the lrt anterior chest in an area where the pt had plasmaphoresis) ED EXAM, GENERAL - Physical Exam Exam: See Below Free Text/Narrative:: pt arrived with a sore area on the anterior chest. It feels like something is poking her. She has had plamaphoresis for optic neuritis. She has a history of MS. She feels like the cuff for the plasmaphoresis has moved. Exam Limited By: No Limitations General Appearance: Alert, Anxious, Mild Distress Ears: Normal TMs Nose: Normal Inspection Throat/Mouth: Normal Inspection Head: Atraumatic Respiratory/Chest: Other (pt has a raised lesion on her chest which is lower than the area of plamaphoresis was first started. She feels like it has moved down and it is poking her now. ) Cardiovascular: Regular Rate, Rhythm GI/Abdominal: Soft, Non-Tender (Female) Exam: Deferred Rectal (Female) Exam: Deferred Back Exam: Normal Inspection Extremities: Normal Inspection Neurological: Alert, Oriented, Normal Cognition Course - Vital Signs Last Recorded V/S: Last Vital Signs Temp 36.6 C 08/10/18 22:03 Pulse 67 08/10/18 22:03 Resp 16 08/10/18 22:03 BP 150/66 H 08/10/18 22:03 Pulse Ox 96 08/10/18 22:03 - Orders/Labs/Meds Orders: Active Orders 24 hr Category Date Time Status Chest 2V [CR] Stat Exams 08/10/18 22:44 Taken Labs: Laboratory Tests 08/10/18 Range/Units 22:53 Urine HCG, Qual Negative - Re-Assessments/Exams Free Text/Narrative Re-Assessment/Exam: 08/10/18 23:32 chest xray was done and it is not radioopaque. Departure - Departure Time of Disposition: 23:26 Disposition: Home, Self-Care 01 Condition: Fair Clinical Impression: History of plasmapheresis - Discharge Information Referrals: PCP,None [Primary Care Provider] - Forms: ED Department Discharge Care Plan Goals: pt will see Dr Stevens tomorrow at 11 am to see if he can look at the area where the cuff was for the plamaphoreus. - My Orders Last 24 Hours: My Active Orders 08/10/18 22:44 Chest 2V [CR] Stat - Assessment/Plan Last 24 Hours: My Active Orders 08/10/18 22:44 Chest 2V [CR] Stat
--- NOTE | 2018-08-10 23:45 | CRLCR ---
Indication: Cuff from plasmaphores has moved. Technique: Chest 2 views Comparison: None Findings: Cardiovascular and mediastinum: Heart size and vasculature are normal in caliber and appearance. Lungs and pleural spaces: Lungs are clear. No sign of infiltrate or mass. No sign of pleural effusion. No pneumothorax. Bones and soft tissues: No significant findings. Impression: No acute or significant findings. Dictated by Sharif Anthony MD @ Aug 10 2018 11:42PM Signed by Dr. Sharif Anthony @ Aug 10 2018 11:43PM
== END 2018-08-10 23:35 | disposition home or self-care (01) ==
LOC: JP.ED 21:47
DX: Z45.2 Encounter for adjustment and management of vascular access device (principal); R07.89 Other chest pain; F17.210 Nicotine dependence, cigarettes, uncomplicated; Z88.8 Allergy status to other drugs, medicaments and biological substances; Z79.899 Other long term (current) drug therapy
CPT/HCPCS: 71046; 81025; 99285-25

== ENCOUNTER 2018-08-13 07:38 | Day surgery (SDC) | payer MEDICAID ==
[2018-08-13] MEDS ORDERED: Midazolam 1 MG/ML 2 ML SDV ONE (07:49)
[2018-08-13] MEDS ORDERED: fentaNYL 100 MCG/2 ML SDV ONE (07:49)
[2018-08-13] MEDS ORDERED: Propofol 200 MG/20 ML SDV ONE (07:49)
[2018-08-13] MEDS ORDERED: Dextrose 5%-Lactated Ringers 1,000 ML IV SCH (08:30)
[2018-08-13] MEDS ORDERED: ceFAZolin 2 GM in Premix Bag 1 BAG IV ONE (09:00)
[2018-08-13] MEDS ORDERED: Bupivacaine 0.5% 50 ML MDV ONE (09:45)
[2018-08-13] MEDS ORDERED: Lidocaine 1% with EPINEPHrine 1:100,000 50 ML MDV ONE (09:46)
[2018-08-13] MEDS ORDERED: Acetaminophen 500 MG Tab PO ONE (11:19)
--- NOTE | 2018-08-17 10:30 | OR ---
DATE OF PROCEDURE: 08/13/2018 SURGEON: Dave Stevens MD PREOPERATIVE DIAGNOSIS: Painful scar and subcutaneous tissue, possibly associated with foreign body reaction, right anterior chest wall. POSTOPERATIVE DIAGNOSIS: Painful scar and subcutaneous tissue, possibly associated with foreign body reaction, right anterior chest wall. OPERATIVE PROCEDURE: Excision of painful scar and subcutaneous tissue, right anterior chest wall, with layered closure ([id number]). ANESTHESIA: Local plus IV sedation. INDICATION FOR PROCEDURE: This is a 23-year-old status post placement of a dialysis type catheter for which she received some plasmapheresis at the time of its removal last fall. She was under the impression that the cuff from the catheter was left in place at the time of the catheter removal, and at this point, the patient is complaining of quite a bit of pain at the exit site of the catheter in the anterior chest wall. It would seem improbable that the catheter cuff would become dislodged, but the patient again is under the impression that may have occurred. Plan is to proceed with painful scar and underlying subcutaneous tissue. The potential risks including bleeding, infection, and possibility of recurrent pain at the incision site were reviewed, and the patient wishes to proceed. PROCEDURE DETAILS: The patient was taken to the operating room and placed in the supine position. The area of concern had been marked out preoperatively. After IV sedation was administered, the area on the right anterior chest wall was prepped and draped and anesthetized with 1% lidocaine mixed with Marcaine. A somewhat oblique elliptical incision was made around the area of concern and carried down through the skin and subcutaneous tissue. The lesion plus margin length in this case was 2.8 cm. We maintained a plane of dissection outside of gross inflammation, i.e. in the normal skin and underlying subcutaneous tissue, and the specimen was delivered from the field. The soft tissue was inspected, some minor bleeding was controlled with electrocautery, and the incision closed with some 4-0 Vicryl stitch deep and then a 5-0 Prolene skin stitch. The incision length was 3.2 cm. Dressing was applied. The patient was taken to the recovery room in satisfactory condition. Dave Stevens MD /[id number]
== END 2018-08-13 12:05 | disposition home or self-care (01) ==
LOC: JP.SDS 07:38
PROVIDERS: ATTEND Surgery
DX: L91.0 Hypertrophic scar (principal); J45.909 Unspecified asthma, uncomplicated; F43.10 Post-traumatic stress disorder, unspecified; F32.9 Major depressive disorder, single episode, unspecified; F90.9 Attention-deficit hyperactivity disorder, unspecified type
CPT/HCPCS: 11403; 12032; 81025; A9270; J0690; J2250; J2704; J3010; J3490; J7042; 88304

== ENCOUNTER 2018-08-15 22:39 | Emergency (ER) | payer MEDICAID ==
--- NOTE | 2018-08-15 23:12 | EDM.PDOC ---
ED HPI GENERAL MEDICAL PROBLEM - General Chief Complaint: Wound Recheck Stated Complaint: SURGERY 08/13/ NOT DOING WELL Time Seen by Provider: 08/15/18 23:00 Source of Information: Reports: Patient History Limitations: Reports: No Limitations - History of Present Illness INITIAL COMMENTS - FREE TEXT/NARRATIVE: 23-year-old female who has a sutured wound in the right anterior chest from a cyst removal 2 days ago, who is having a reaction to the stitches. She feels increased pain and itching with a small amount of redness. She is convinced she needs them out. No fevers or chills, no shortness of breath. No other rash. Onset: Gradual (Over the past 2 days) Associated Symptoms: Reports: No Other Symptoms - Related Data Allergies Allergy/AdvReac Type Severity Reaction Status Date / Time aripiprazole [From Abilify] Allergy Hives Verified 08/13/18 08:22 fluoxetine [From Prozac] Allergy Hives Verified 08/13/18 08:22 oxycodone [From Percocet] AdvReac Vomiting Verified 08/13/18 08:22 Home Meds: Home Meds Venlafaxine [Effexor XR] 75 mg PO DAILY 08/10/18 [History] traZODone HCl [Trazodone HCl] 50 - 150 mg PO BEDTIME 08/10/18 [History] Past Medical History HEENT History: Reports: Impaired Vision, Other (See Below) Other HEENT History: optic neuritis, 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 - since resolved Cardiovascular History: Reports: Arrhythmia Respiratory History: Reports: Asthma Gastrointestinal History: Reports: Cholelithiasis Genitourinary History: Reports: Renal Calculus 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: Polycystic Ovaries, Musculoskeletal History: Reports: Back Pain, Chronic Neurological History: Reports: Concussion, Migraines, MS Psychiatric History: Reports: Anxiety, Depression, Psych Hospitalization(s), PTSD, Suicide Attempt Endocrine/Metabolic History: Reports: Obesity/BMI 30+, Vitamin D Deficiency Hematologic History: Reports: Other (See Below) Other Hematologic History: blood clot Dermatologic History: Reports: Eczema - Infectious Disease History Infectious Disease History: Reports: Chicken Pox - Past Surgical History Head Surgeries/Procedures: Reports: None HEENT Surgical History: Reports: Tonsillectomy GI Surgical History: Reports: Cholecystectomy Female Surgical History: Reports: Section, D&C Social & Family History - Family History Family Medical History: Noncontributory - Tobacco Use Smoking Status *Q: Unknown Ever Smoked - Caffeine Use Caffeine Use: Reports: Coffee ED ROS GENERAL - Review of Systems Review Of Systems: See Below Constitutional: Denies: Fever, Chills HEENT: Reports: No Symptoms Respiratory: Denies: Shortness of Breath Cardiovascular: Denies: Chest Pain GI/Abdominal: Denies: Nausea, Vomiting Skin: Reports: Pruritis, Erythema, Other (Painful around her incision with some erythema and itching) ED EXAM, SKIN/RASH Exam: See Below Exam Limited By: No Limitations General Appearance: Alert, No Apparent Distress Head: Atraumatic Respiratory/Chest: No Respiratory Distress, Lungs Clear Skin: Other (Exam is otherwise limited to the surgical area of the right anterior chest. She has a 4 cm transverse laceration that is sutured with a running nylon stitch. There is a small amount of erythema but no significant swelling or warmth.) Course - Vital Signs Last Recorded V/S: Last Vital Signs Temp 97.5 F 08/15/18 22:55 Pulse 75 08/15/18 22:55 Resp 16 08/15/18 22:55 BP 146/83 H 08/15/18 22:55 Pulse Ox 98 08/15/18 22:55 - Re-Assessments/Exams Free Text/Narrative Re-Assessment/Exam: 08/15/18 23:10 Reassured the patient that it appears to be healing normally and I do not see an acute reaction or infection. Patient was insistent however on getting the stitches out, so they were removed and replaced with Steri-Strips. She should recheck with the surgeon as scheduled. She can return sooner if she has increased symptoms such as redness or fever, or swelling and drainage of the wound. Departure - Departure Time of Disposition: 23:25 Disposition: Home, Self-Care 01 Clinical Impression: Dermatitis - Discharge Information Instructions: Wound Care, Adult Referrals: Dave Stevens MD [Primary Care Provider] - Forms: ED Department Discharge Care Plan Goals: Keep wound covered while healing, and recheck with Dr. Stevens as scheduled. Return sooner if the wound is worsening such as increased erythema, drainage, warmth or swelling.
== END 2018-08-15 23:25 | disposition home or self-care (01) ==
LOC: JP.ED 22:39
DX: L30.9 Dermatitis, unspecified (principal); F41.9 Anxiety disorder, unspecified; F32.9 Major depressive disorder, single episode, unspecified; E66.9 Obesity, unspecified; Z88.8 Allergy status to other drugs, medicaments and biological substances; Z88.6 Allergy status to analgesic agent; Z79.899 Other long term (current) drug therapy; Z90.49 Acquired absence of other specified parts of digestive tract; Z98.890 Other specified postprocedural states
CPT/HCPCS: 99282

== ENCOUNTER 2018-10-14 21:58 | Emergency (ER) | payer MEDICAID ==
[2018-10-14] MEDS ORDERED: Aspirin 81 MG Tab.Chew PO ONE (22:01)
--- NOTE | 2018-10-14 22:01 | EDM.PDOC ---
ED HPI GENERAL MEDICAL PROBLEM - General Chief Complaint: Chest Pain Stated Complaint: HEART ISSUES Time Seen by Provider: 10/14/18 22:01 Source of Information: Reports: Patient, Retirement Records - History of Present Illness INITIAL COMMENTS - FREE TEXT/NARRATIVE: + 23 years old female patient presented with a chief complaint of chest pain and palpitation started 1 hour ago. Constant sharp pain. No radiation. Associated with nausea but no vomiting. Denies any cough or fever. Nothing makes pain better or worse. Denies any diaphoresis. Denies any abdominal pain diarrhea or constipation. Denies any urinary symptom. Pain started at rest. History of A. fib back of January and she was cardioverted. 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 resolved Cardiovascular History: Reports: Arrhythmia Respiratory History: Reports: Asthma Gastrointestinal History: Reports: Cholelithiasis Genitourinary History: Reports: Renal Calculus 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 History: Reports: Polycystic Ovaries, Musculoskeletal History: Reports: Back Pain, Chronic Neurological History: Reports: Concussion, Migraines, MS Psychiatric History: Reports: Anxiety, Depression, Psych Hospitalization(s), PTSD, Suicide Attempt Endocrine/Metabolic History: Reports: Obesity/BMI 30+, Vitamin D Deficiency Hematologic History: Reports: Other (See Below) Other Hematologic History: blood clot Dermatologic History: Reports: Eczema - Infectious Disease History Infectious Disease History: Reports: Chicken Pox - Past Surgical History Head Surgeries/Procedures: Reports: None HEENT Surgical History: Reports: Tonsillectomy GI Surgical History: Reports: Cholecystectomy Female Surgical History: Reports: Section, D&C Social & Family History - Family History Family Medical History: Noncontributory - Caffeine Use Caffeine Use: Reports: Coffee ED ROS GENERAL - Review of Systems Review Of Systems: ROS reveals no pertinent complaints other than HPI. ED EXAM, GENERAL - Physical Exam Exam: See Below Exam Limited By: No Limitations General Appearance: Alert, WD/WN, No Apparent Distress Ears: Normal External Exam, Normal Canal, Hearing Grossly Normal, Normal TMs Ear Exam: Bilateral Ear: Auricle Normal, Canal Normal, TM normal Nose: Normal Inspection, Normal Mucosa, No Blood Throat/Mouth: Normal Inspection, Normal Lips, Normal Teeth, Normal Gums, Normal Oropharynx, Normal Voice, No Airway Compromise Head: Atraumatic, Normocephalic Neck: Normal Inspection, Supple, Non-Tender, Full Range of Motion Respiratory/Chest: No Respiratory Distress, Lungs Clear, Normal Breath Sounds, No Accessory Muscle Use, Chest Non-Tender Cardiovascular: Normal Peripheral Pulses, Regular Rate, Rhythm, No Edema, No Gallop, No JVD, No Murmur, No Rub. No: Bradycardia, Tachycardia GI/Abdominal: Normal Bowel Sounds, Soft, Non-Tender, No Organomegaly, No Distention, No Abnormal Bruit, No Mass Back Exam: Normal Inspection, Full Range of Motion, NT Extremities: Normal Inspection, Normal Range of Motion, Non-Tender, Normal Capillary Refill, No Pedal Edema Neurological: Alert, Oriented, CN II-XII Intact, Normal Cognition, Normal Gait, Normal Reflexes, No Motor/Sensory Deficits Course - Vital Signs Last Recorded V/S: Last Vital Signs Temp 36.1 C 10/14/18 22:16 Pulse 69 10/15/18 00:24 Resp 17 10/14/18 22:34 BP 125/51 L 10/15/18 00:24 Pulse Ox 96 10/14/18 22:34 - Orders/Labs/Meds Orders: Active Orders 24 hr Category Date Time Status Cardiac Monitoring [RC] .As Directed Care 10/14/18 22:01 Active Cardiac Monitoring [RC] .As Directed Care 10/14/18 22:17 Active EKG Documentation Completion [RC] ASDIRECTED Care 10/14/18 22:03 Active Nitroglycerin [Nitrostat] Med 10/14/18 22:17 Active 0.4 mg SL Q5M PRN EKG 12 Lead [EK] Stat Ther 10/14/18 22:02 Ordered Medication Orders Nitroglycerin (Nitrostat) 0.4 mg SL Q5M PRN PRN Reason: Chest Pain Stop: 10/15/18 22:17 Last Admin: 10/14/18 22:41 Dose: 0.4 mg Admin: 10/14/18 22:27 Dose: 0.4 mg Admin: 10/14/18 22:20 Dose: 0.4 mg Labs: Laboratory Tests 10/14/18 10/14/18 10/14/18 Range/Units 22:01 22:01 22:01 WBC 9.4 (4.5-11.0) K/uL RBC 4.65 (3.30-5.50) M/uL Hgb 11.4 L (12.0-15.0) g/dL Hct 37.2 (36.0-48.0) % MCV 80 (80-98) fL MCH 25 L (27-31) pg MCHC 31 L (32-36) % Plt Count 278 (150-400) K/uL Neut % (Auto) 66 (36-66) % Lymph % (Auto) 24 (24-44) % [place] % (Auto) 8 H (2-6) % Eos % (Auto) 2 (2-4) % Baso % (Auto) 0 (0-1) % PT 10.6 (9.5-12.0) sec INR 0.98 (0.80-1.20) Sodium 143 (140-148) mmol/L Potassium 3.6 (3.6-5.2) mmol/L Chloride 107 (100-108) mmol/L Carbon Dioxide 29 (21-32) mmol/L Anion Gap 7.2 (5.0-14.0) mmol/L BUN 12 D (7-18) mg/dL Creatinine 0.7 (0.6-1.0) mg/dL Est Cr Clr Drug Dosing 123.93 mL/min Estimated GFR (MDRD) > 60 (>60) Glucose 147 H (74-106) mg/dL Lactic Acid (0.4-2.0) mmol/L Calcium 9.0 (8.5-10.1) mg/dL Magnesium 1.9 (1.8-2.4) mg/dL Troponin I < 0.017 (0.000-0.056) ng/mL NT-Pro-B Natriuret Pep 12 (5-125) pg/mL 10/14/18 Range/Units 22:01 WBC (4.5-11.0) K/uL RBC (3.30-5.50) M/uL Hgb (12.0-15.0) g/dL Hct (36.0-48.0) % MCV (80-98) fL MCH (27-31) pg MCHC (32-36) % Plt Count (150-400) K/uL Neut % (Auto) (36-66) % Lymph % (Auto) (24-44) % Saunders % (Auto) (2-6) % Eos % (Auto) (2-4) % Baso % (Auto) (0-1) % PT (9.5-12.0) sec INR (0.80-1.20) Sodium (140-148) mmol/L Potassium (3.6-5.2) mmol/L Chloride (100-108) mmol/L Carbon Dioxide (21-32) mmol/L Anion Gap (5.0-14.0) mmol/L BUN (7-18) mg/dL Creatinine (0.6-1.0) mg/dL Est Cr Clr Drug Dosing mL/min Estimated GFR (MDRD) (>60) Glucose (74-106) mg/dL Lactic Acid 1.1 (0.4-2.0) mmol/L Calcium (8.5-10.1) mg/dL Magnesium (1.8-2.4) mg/dL Troponin I (0.000-0.056) ng/mL NT-Pro-B Natriuret Pep (5-125) pg/mL Meds: Medications Generic Name Dose Route Start Last Admin Trade Name Freq PRN Reason Stop Dose Admin Nitroglycerin 0.4 mg 10/14/18 22:17 10/14/18 22:41 Nitrostat SL 10/15/18 22:17 0.4 mg Q5M PRN Administration Chest Pain Discontinued Medications Generic Name Dose Route Start Last Admin Trade Name Freq PRN Reason Stop Dose Admin Acetaminophen 650 mg 10/14/18 22:58 10/14/18 23:04 Tylenol PO 10/14/18 22:59 650 mg NOW ONE Administration Aspirin 324 mg 10/14/18 22:01 10/14/18 22:13 Aspirin PO 10/14/18 22:02 324 mg ONETIME ONE Administration Metoprolol Tartrate 25 mg 10/15/18 00:20 10/15/18 00:24 Lopressor PO 10/15/18 00:21 25 mg ONETIME ONE Administration Ondansetron HCl 4 mg 10/14/18 22:19 10/14/18 22:23 Zofran IVPUSH 10/14/18 22:20 4 mg ONETIME ONE Administration - Radiology Interpretation Free Text/Narrative:: Patient was seen and examined shortly after arrival. Stable. Started on electronic device monitor. Given aspirin and nitroglycerin. EKG, Lab and imaging reviewed with the patient. No significant acute abnormalities. Pain resolved after 3 nitroglycerin. patient now completely asymptomatic and symptom. Given that pain started only 1 hour ago, nonspecific EKG abnormalities, family history of heart disease, she recent history of A. fib I did recommend admission for further management. Patient agrees with the plan. I did [facility] hospitalist public relations consultant and she accepted admission for further management. patient agrees with the plan. Stable for admission Departure - Departure Time of Disposition: 22:55 Disposition: Admitted As Inpatient 66 Condition: Good Clinical Impression: Chest pain Referrals: PCP,None [Primary Care Provider] - Forms: ED Department Discharge - My Orders Last 24 Hours: My Active Orders 10/14/18 22:01 Cardiac Monitoring [RC] .As Directed 10/14/18 22:02 EKG 12 Lead [EK] Stat 10/14/18 22:03 EKG Documentation Completion [RC] ASDIRECTED 10/14/18 22:17 Cardiac Monitoring [RC] .As Directed Nitroglycerin [Nitrostat] 0.4 mg SL Q5M PRN - Assessment/Plan Last 24 Hours: My Active Orders 10/14/18 22:01 Cardiac Monitoring [RC] .As Directed 10/14/18 22:02 EKG 12 Lead [EK] Stat 10/14/18 22:03 EKG Documentation Completion [RC] ASDIRECTED 10/14/18 22:17 Cardiac Monitoring [RC] .As Directed Nitroglycerin [Nitrostat] 0.4 mg SL Q5M PRN Plan: admit to hospitalist Marisa
[2018-10-14] MEDS ORDERED: Ondansetron 4 MG/2 ML SDV IVPUSH ONE (22:19)
[2018-10-14] MEDS: Nitroglycerin 0.4 MG Tab.SL SL PRN ×3 (22:20→22:41)
--- NOTE | 2018-10-14 22:46 | CRLCR ---
Indication: Chest pain Technique: Chest 1 view Comparison: August 10, 2018 Findings/Impression: Cardiovascular and mediastinum: Heart size and vasculature are normal in caliber and appearance. Mediastinum is within normal limits. Lungs and pleural space: Lungs are clear. No sign of infiltrate or mass. No sign of pleural effusion. No pneumothorax. Bones and soft tissues: No significant findings. Dictated by Marina Albrecht MD @ Oct 14 2018 10:42PM Signed by Dr. Marina Albrecht @ Oct 14 2018 10:43PM
[2018-10-14] MEDS ORDERED: Acetaminophen 325 MG Tab PO ONE (22:58)
[2018-10-15] MEDS ORDERED: Metoprolol Tartrate 25 MG Tab PO ONE (00:20)
== END 2018-10-15 00:55 | disposition critical access hospital (66) ==
LOC: JP.ED 21:58
DX: R07.9 Chest pain, unspecified (principal); R11.0 Nausea; F32.9 Major depressive disorder, single episode, unspecified; F41.9 Anxiety disorder, unspecified; E66.9 Obesity, unspecified; Z68.30 Body mass index [BMI] 30.0-30.9, adult; Z88.8 Allergy status to other drugs, medicaments and biological substances; Z90.49 Acquired absence of other specified parts of digestive tract; Z79.899 Other long term (current) drug therapy; Z98.890 Other specified postprocedural states; Z88.6 Allergy status to analgesic agent
CPT/HCPCS: 36415; 71045; 80048; 83605; 83735; 83880; 84484; 85025; 85610; 93005; 96374; 99285; A9270; J2405

== ENCOUNTER 2018-10-16 18:52 | Emergency (ER) | payer MEDICAID ==
--- NOTE | 2018-10-16 19:11 | EDM.PDOC ---
ED HPI GENERAL MEDICAL PROBLEM - General Chief Complaint: Chest Pain Stated Complaint: chest pains and sob Time Seen by Provider: 10/16/18 19:08 Source of Information: Reports: Patient History Limitations: Reports: No Limitations - History of Present Illness INITIAL COMMENTS - FREE TEXT/NARRATIVE: pt was having plamophoresis at [facility] in Jan and she had afib and had to be cardioverted. She had a irregular heart beat on the and she was brought to the hosp. on the Oct. Onset: Today, Other (pt is having chest pain) Duration: Hour(s): Location: Reports: Chest Associated Symptoms: Reports: Chest Pain, Shortness of Breath chest pain Pain Score (Numeric/FACES): 7 - Related Data Allergies Allergy/AdvReac Type Severity Reaction Status Date / Time aripiprazole [From Abilify] Allergy Hives Verified 10/16/18 18:59 fluoxetine [From Prozac] Allergy Hives Verified 10/16/18 18:59 oxycodone [From Percocet] AdvReac Vomiting Verified 10/16/18 18:59 Home Meds: Home Meds Venlafaxine [Effexor XR] 75 mg PO DAILY 08/10/18 [History] traZODone HCl [Trazodone HCl] 50 - 150 mg PO BEDTIME 08/10/18 [History] Past Medical History HEENT History: Reports: Impaired Vision, Other (See Below) Other HEENT History: optic neuritis, 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 - since resolved Cardiovascular History: Reports: Arrhythmia Respiratory History: Reports: Asthma Gastrointestinal History: Reports: Cholelithiasis Genitourinary History: Reports: Renal Calculus 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: Reports: Polycystic Ovaries, Musculoskeletal History: Reports: Back Pain, Chronic Neurological History: Reports: Concussion, Migraines, MS Psychiatric History: Reports: Anxiety, Depression, Psych Hospitalization(s), PTSD, Suicide Attempt Endocrine/Metabolic History: Reports: Obesity/BMI 30+, Vitamin D Deficiency Hematologic History: Reports: Other (See Below) Other Hematologic History: blood clot Dermatologic History: Reports: Eczema - Infectious Disease History Infectious Disease History: Reports: Chicken Pox - Past Surgical History Head Surgeries/Procedures: Reports: None HEENT Surgical History: Reports: Tonsillectomy GI Surgical History: Reports: Cholecystectomy Female Surgical History: Reports: Section, D&C Social & Family History - Family History Family Medical History: Noncontributory - Tobacco Use Smoking Status *Q: Current Every Day Smoker Years of Tobacco use: 10 Packs/Tins Daily: 0.4 - Caffeine Use Caffeine Use: Reports: Coffee - Recreational Drug Use Recreational Drug Use: Yes Drug Use in Last 12 Months: Yes Recreational Drug Type: Reports: Marijuana/Hashish Recreational Drug Use Frequency: Rarely ED ROS GENERAL - Review of Systems Review Of Systems: See Below Constitutional: Reports: No Symptoms HEENT: Reports: No Symptoms Respiratory: Reports: Shortness of Breath Cardiovascular: Reports: Chest Pain Endocrine: Reports: No Symptoms GI/Abdominal: Reports: No Symptoms : Reports: No Symptoms Musculoskeletal: Reports: No Symptoms Skin: Reports: No Symptoms ED EXAM, GENERAL - Physical Exam Exam: See Below Free Text/Narrative:: pt arrived with pain in her left chest. She hurts some when she takes a deep breath. She was here on the 7th and she was evaluated for the chest pain. Exam Limited By: No Limitations General Appearance: Alert, Anxious, Moderate Distress Ears: Normal TMs Nose: Normal Inspection Throat/Mouth: Normal Inspection Head: Atraumatic Neck: Normal Inspection Respiratory/Chest: No Respiratory Distress, Other (pt is tender to palpate her left chest. . She is very tender over the left costophrenic joints. ) Cardiovascular: Regular Rate, Rhythm GI/Abdominal: Soft, Non-Tender (Female) Exam: Deferred Rectal (Female) Exam: Deferred Back Exam: Normal Inspection Extremities: Normal Inspection Neurological: Alert, Oriented, Normal Cognition Psychiatric: Normal Affect Course - Vital Signs Last Recorded V/S: Last Vital Signs Temp 36.6 C 10/16/18 19:26 Pulse 78 10/16/18 19:58 Resp 14 10/16/18 19:58 BP 122/66 10/16/18 19:58 Pulse Ox 96 10/16/18 19:58 - Orders/Labs/Meds Orders: Active Orders 24 hr Category Date Time Status EKG Documentation Completion [RC] ASDIRECTED Care 10/16/18 19:07 Active EKG 12 Lead [EK] Routine Ther 10/16/18 19:06 Ordered Labs: Laboratory Tests 10/16/18 10/16/18 10/16/18 Range/Units 19:18 19:18 19:18 WBC 9.3 (4.5-11.0) K/uL RBC 4.75 (3.30-5.50) M/uL Hgb 11.6 L (12.0-15.0) g/dL Hct 37.9 (36.0-48.0) % MCV 80 (80-98) fL MCH 24 L (27-31) pg MCHC 31 L (32-36) % Plt Count 257 (150-400) K/uL Neut % (Auto) 69 H (36-66) % Lymph % (Auto) 20 L (24-44) % [place] % (Auto) 9 H (2-6) % Eos % (Auto) 3 (2-4) % Baso % (Auto) 0 (0-1) % Sodium 142 (140-148) mmol/L Potassium 3.9 (3.6-5.2) mmol/L Chloride 106 (100-108) mmol/L Carbon Dioxide 27 (21-32) mmol/L Anion Gap 9.2 (5.0-14.0) mmol/L BUN 12 (7-18) mg/dL Creatinine 0.7 (0.6-1.0) mg/dL Est Cr Clr Drug Dosing 123.93 mL/min Estimated GFR (MDRD) > 60 (>60) Glucose 140 H (74-106) mg/dL Calcium 8.6 (8.5-10.1) mg/dL Troponin I < 0.017 (0.000-0.056) ng/mL Meds: Medications Discontinued Medications Generic Name Dose Route Start Last Admin Trade Name Freq PRN Reason Stop Dose Admin Ketorolac Tromethamine 60 mg 10/16/18 20:00 Toradol IM 10/16/18 20:01 ONETIME ONE - Re-Assessments/Exams Free Text/Narrative Re-Assessment/Exam: 10/16/18 20:05 ekg is normal, trop is normal. Her rhythm is sinus. Sh continues to be very tender on the left costosternl joints. She was given torodol 60mg im 10/16/18 20:11 Departure - Departure Time of Disposition: 20:13 Disposition: Home, Self-Care 01 Condition: Fair Clinical Impression: Chest wall pain, History of atrial fibrillation Referrals: PCP,None [Primary Care Provider] - Forms: ED Department Discharge Care Plan Goals: heat to the left costosternal joints, naprosyn 500mg bid for inflamation. if pt has persistent symptoms she should have a exercise cardiac stress test to see if there are any changes. - My Orders Last 24 Hours: My Active Orders 10/16/18 19:06 EKG 12 Lead [EK] Routine 10/16/18 19:07 EKG Documentation Completion [RC] ASDIRECTED - Assessment/Plan Last 24 Hours: My Active Orders 10/16/18 19:06 EKG 12 Lead [EK] Routine 10/16/18 19:07 EKG Documentation Completion [RC] ASDIRECTED
[2018-10-16] MEDS ORDERED: Ketorolac 60 MG/2 ML SDV IM ONE (20:00)
== END 2018-10-16 20:37 | disposition home or self-care (01) ==
LOC: JP.ED 18:52
DX: R07.89 Other chest pain (principal); F32.9 Major depressive disorder, single episode, unspecified; F41.9 Anxiety disorder, unspecified; E66.9 Obesity, unspecified; I48.91 Unspecified atrial fibrillation; F17.210 Nicotine dependence, cigarettes, uncomplicated; Z90.49 Acquired absence of other specified parts of digestive tract; Z98.890 Other specified postprocedural states; Z68.42 Body mass index [BMI] 45.0-49.9, adult; Z88.5 Allergy status to narcotic agent; Z88.8 Allergy status to other drugs, medicaments and biological substances
CPT/HCPCS: 36415; 80048; 84484; 85025; 93005; 96372; 99285; J1885

== ENCOUNTER 2019-03-10 19:44 | Emergency (ER) | payer MEDICAID ==
[2019-03-10] MEDS ORDERED: Aspirin 81 MG Tab.Chew PO ONE (20:33)
[2019-03-10] MEDS ORDERED: Ketorolac 60 MG/2 ML SDV IM ONE (20:35)
--- NOTE | 2019-03-10 20:35 | EDM.PDOC ---
ED HPI GENERAL MEDICAL PROBLEM - General Chief Complaint: Chest Pain Stated Complaint: CHEST PAIN Time Seen by Provider: 03/10/19 20:25 Source of Information: Reports: Patient, Old Records, RN History Limitations: Reports: No Limitations - History of Present Illness INITIAL COMMENTS - FREE TEXT/NARRATIVE: 23 yo morbidly obese 23 yo female presents crying with sternal pain that she describes as sharp. States she has a pHx of afib/flutter. Is not SOB and does not notice rapid HR. No nausea or diaphoresis. No new unilateral calf pain. Was recently hospitalized for a GI problem. Onset: Today Onset Date: 03/10/19 Duration: Minutes:, Constant Location: Reports: Chest Quality: Reports: Sharp Severity: Moderate Improves with: Reports: None Worsens with: Reports: None Context: Reports: Other (Hx of anxiety and afib, paroxysmal) Associated Symptoms: Reports: Chest Pain. Denies: Diaphoresis, Fever/Chills, Nausea/Vomiting, Rash, Shortness of Breath Treatments SENIOR OPERATOR: Reports: Other (see below) (none) Chest Pain Score (Numeric/FACES): 9 - Related Data Allergies Allergy/AdvReac Type Severity Reaction Status Date / Time aripiprazole [From Abilify] Allergy Hives Verified 03/10/19 19:52 fluoxetine [From Prozac] Allergy Hives Verified 03/10/19 19:52 oxycodone [From Percocet] AdvReac Vomiting Verified 03/10/19 19:52 Home Meds: Home Meds Venlafaxine [Effexor XR] 75 mg PO DAILY 08/10/18 [History] Mirtazapine 1 tab PO BEDTIME 01/24/19 [History] Acetaminophen/HYDROcodone [[place] 325-5 MG] 1 - 2 tab PO Q6H PRN 03/10/19 [ History] Past Medical History HEENT History: Reports: Impaired Vision, Other (See Below) Other HEENT History: optic neuritis, 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 - since resolved Cardiovascular History: Reports: Arrhythmia Respiratory History: Reports: Asthma Gastrointestinal History: Reports: Cholelithiasis Genitourinary History: Reports: Renal Calculus 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: Polycystic Ovaries, , 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: 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 Musculoskeletal History: Reports: Back Pain, Chronic Neurological History: Reports: Concussion, Migraines, MS Psychiatric History: Reports: Anxiety, Depression, Psych Hospitalization(s), PTSD, Suicide Attempt Endocrine/Metabolic History: Reports: Obesity/BMI 30+, Vitamin D Deficiency Hematologic History: Reports: Other (See Below) Other Hematologic History: blood clot Dermatologic History: Reports: Eczema - Infectious Disease History Infectious Disease History: Reports: Chicken Pox - Past Surgical History Head Surgeries/Procedures: Reports: None HEENT Surgical History: Reports: Tonsillectomy GI Surgical History: Reports: Cholecystectomy Female Surgical History: Reports: Section, D&C Social & Family History - Family History Family Medical History: Noncontributory - Tobacco Use Smoking Status *Q: Current Every Day Smoker Years of Tobacco use: 12 Packs/Tins Daily: 1 - Caffeine Use Caffeine Use: Reports: Coffee - Recreational Drug Use Recreational Drug Use: Yes Recreational Drug Type: Reports: Marijuana/Hashish Recreational Drug Use Frequency: Not Used In Over 1 Month ED ROS GENERAL - Review of Systems Review Of Systems: See Below Constitutional: Reports: No Symptoms HEENT: Reports: No Symptoms Respiratory: Reports: No Symptoms Cardiovascular: Reports: Chest Pain Endocrine: Reports: No Symptoms GI/Abdominal: Reports: No Symptoms : Reports: No Symptoms Musculoskeletal: Reports: No Symptoms Skin: Reports: No Symptoms Neurological: Reports: No Symptoms Psychiatric: Reports: Anxiety ED EXAM, GENERAL - Physical Exam Exam: See Below Exam Limited By: No Limitations General Appearance: Alert, WD/WN, No Apparent Distress, Obese Eye Exam: Bilateral Eye: Normal Inspection Ears: Normal External Exam, Normal Canal, Hearing Grossly Normal, Normal TMs Ear Exam: Bilateral Ear: Auricle Normal Nose: Normal Inspection, No Blood Throat/Mouth: Normal Inspection, Normal Lips, Normal Oropharynx, Normal Voice, No Airway Compromise Head: Atraumatic, Normocephalic Neck: Normal Inspection Respiratory/Chest: No Respiratory Distress, Lungs Clear, Normal Breath Sounds, No Accessory Muscle Use. No: Chest Non-Tender (sternum mildly tender with palpation. ) Cardiovascular: Regular Rate, Rhythm, No Edema GI/Abdominal: Normal Bowel Sounds, Soft, Non-Tender, No Distention Back Exam: Normal Inspection Extremities: Normal Inspection, Normal Range of Motion, Non-Tender, No Pedal Edema Neurological: Alert, Oriented, CN II-XII Intact, Normal Cognition, No Motor/ Sensory Deficits Psychiatric: Normal Affect, Normal Mood Skin Exam: Warm, Dry, Intact, Normal Color, No Rash EKG INTERPRETATION EKG Date: 03/10/19 Time: 20:15 Rhythm: NSR Rate (Beats/Min): 77 [place]: Normal P-Wave: Present QRS: Normal ST-T: Elevated (Borderline ST elevation I, AVL only. This was present on prior EKG's as well.) QT: Normal Comparison: No Change (Minimal overall change from prior EKG's) Course - Vital Signs Text/Narrative:: Pain reduced after Toradol. Last Recorded V/S: Last Vital Signs Temp 37.2 C 03/10/19 19:58 Pulse 74 03/10/19 20:50 Resp 25 H 03/10/19 20:50 BP 127/54 L 03/10/19 20:50 Pulse Ox 95 03/10/19 20:50 - Orders/Labs/Meds Orders: Active Orders 24 hr Category Date Time Status Cardiac Monitoring [RC] .As Directed Care 03/10/19 20:12 Active EKG Documentation Completion [RC] ASDIRECTED Care 03/10/19 20:12 Active EKG 12 Lead [EK] Routine Ther 03/10/19 20:11 Ordered Labs: Laboratory Tests 03/10/19 Range/Units 20:45 Troponin I < 0.017 (0.000-0.056) ng/mL Meds: Medications Discontinued Medications Generic Name Dose Route Start Last Admin Trade Name Judd PRN Reason Stop Dose Admin Aspirin 324 mg 03/10/19 20:33 03/10/19 20:45 Aspirin PO 03/10/19 20:34 324 mg ONETIME ONE Administration Ketorolac Tromethamine 60 mg 03/10/19 20:35 03/10/19 20:46 Toradol IM 03/10/19 20:36 60 mg ONETIME ONE Administration Departure - Departure Time of Disposition: 21:45 Disposition: Home, Self-Care 01 Condition: Good Clinical Impression: Costochondritis, acute Instructions: Costochondritis, [id number] Referrals: PCP,None [Primary Care Provider] - Forms: ED Department Discharge Additional Instructions: Starting after 3 am take ibuprofen 600 mg every 6 hrs with food. Add acetaminophen up to 1000 mg every 6 hrs for added relief. Recheck with your provider if not better by Friday. Sepsis Event Note - Evaluation Sepsis Screening Result: No Definite Risk - Focused Exam Vital Signs: Vital Signs Temp Pulse Resp BP Pulse Ox 03/10/19 20:50 74 25 H 127/54 L 95 03/10/19 20:18 73 24 H 124/65 95 03/10/19 19:58 37.2 C 82 15 124/77 96 03/10/19 19:51 37.2 C 82 15 124/77 96 Date Exam was Performed: 03/10/19 Time Exam was Performed: 21:42 - My Orders Last 24 Hours: My Active Orders 03/10/19 20:11 EKG 12 Lead [EK] Routine 03/10/19 20:12 Cardiac Monitoring [RC] .As Directed EKG Documentation Completion [RC] ASDIRECTED - Assessment/Plan Last 24 Hours: My Active Orders 03/10/19 20:11 EKG 12 Lead [EK] Routine 03/10/19 20:12 Cardiac Monitoring [RC] .As Directed EKG Documentation Completion [RC] ASDIRECTED
== END 2019-03-10 21:53 | disposition home or self-care (01) ==
LOC: JP.ED 19:44
DX: M94.0 Chondrocostal junction syndrome [Tietze] (principal); F17.210 Nicotine dependence, cigarettes, uncomplicated; F41.9 Anxiety disorder, unspecified; F32.9 Major depressive disorder, single episode, unspecified; Z79.899 Other long term (current) drug therapy; Z88.8 Allergy status to other drugs, medicaments and biological substances
CPT/HCPCS: 36415; 84484; 93005; 96372; 99285; A9270; J1885

== ENCOUNTER 2021-12-26 12:50 | Emergency (ER) | payer MEDICAID ==
[2021-12-26] MEDS ORDERED: Lidocaine 1% 5 ML VIAL INJECT ONE (13:23)
[2021-12-26] MEDS ORDERED: Silver Nitrate Applicator Each TOP ONE (13:24)
[2021-12-26] MEDS ORDERED: Bacitracin Oint 1 GM U/D Packet TOP ONE (13:55)
== END 2021-12-26 15:07 | disposition home or self-care (01) ==
LOC: JP.ED 12:50
DX: S61.217A Laceration without foreign body of left little finger without damage to nail, initial encounter (principal); Z88.1 Allergy status to other antibiotic agents; Z88.5 Allergy status to narcotic agent; Z79.899 Other long term (current) drug therapy; Z90.49 Acquired absence of other specified parts of digestive tract; W26.8XXA Contact with other sharp object(s), not elsewhere classified, initial encounter
CPT/HCPCS: 99282

== ENCOUNTER 2022-08-31 23:26 | Emergency (ER) | payer MEDICAID ==
[2022-09-01 00:16] LABS: BASOPHILS ABSOLUTE AUTO 0.03 K/uL (0.00-0.10); BASOPHILS PERCENT AUTO 0.3 % (0.1-1.3); EOSINOPHILS ABSOLUTE AUTO 0.24 K/uL (0.00-0.40); EOSINOPHILS PERCENT AUTO 2.1 % (0.0-5.4); HEMATOCRIT 43.1 % (34.3-46.0); HEMOGLOBIN 14.9 g/dL (11.2-15.5); IMMATURE GRAN ABSOLUTE AUTO 0.16 K/uL (0.00-0.23); IMMATURE GRAN PERCENT AUTO 1.4 % (0.0-0.7); LYMPHOCYTES ABSOLUTE AUTO 3.06 K/uL (0.8-3.3); LYMPHOCYTES PERCENT AUTO 26.7 % (11.4-47.7); MEAN CORPUSCULAR HEMOGLOBIN 30.8 pg (31.6-35.5); MEAN CORPUSCULAR HGB CONC 34.6 g/dL (31.6-35.5); MONOCYTES ABSOLUTE AUTO 0.89 K/uL (0.20-0.90); MONOCYTES PERCENT AUTO 7.8 % (3.3-12.6); NEUTROPHILS ABSOLUTE AUTO 7.08 K/uL (1.0-7.6); NEUTROPHILS PERCENT AUTO 61.7 % (40.0-78.1); PLATELET COUNT,PLT 311 K/uL (130-375); RED BLOOD CELL COUNT 4.84 M/uL (3.77-5.24); WHITE BLOOD CELL COUNT,WBC 11.5 K/uL (3.2-11.0)
== END 2022-09-01 00:46 | disposition home or self-care (01) ==
LOC: JP.ED 23:26
DX: K12.2 Cellulitis and abscess of mouth (principal); J45.909 Unspecified asthma, uncomplicated; F17.210 Nicotine dependence, cigarettes, uncomplicated; E66.9 Obesity, unspecified; Z68.43 Body mass index [BMI] 50.0-59.9, adult; Z79.899 Other long term (current) drug therapy; Z88.6 Allergy status to analgesic agent; Z88.5 Allergy status to narcotic agent; Z88.8 Allergy status to other drugs, medicaments and biological substances
CPT/HCPCS: 36415; 85025; 87651-QW; 99283

== ENCOUNTER 2022-12-31 12:02 | Emergency (ER) | payer MEDICAID ==
[2022-12-31] MEDS ORDERED: diphenhydrAMINE 50 MG/ML SDV IM ONE (14:08)
[2022-12-31] MEDS ORDERED: Ketorolac 30 MG/ML SDV IM ONE (14:08)
[2022-12-31] MEDS ORDERED: Metoclopramide 10 MG/2 ML SDV IM ONE (14:08)
== END 2022-12-31 15:23 | disposition home or self-care (01) ==
LOC: JP.ED 12:02
DX: G43.911 Migraine, unspecified, intractable, with status migrainosus (principal); J45.909 Unspecified asthma, uncomplicated; F17.210 Nicotine dependence, cigarettes, uncomplicated; Z88.5 Allergy status to narcotic agent; Z88.8 Allergy status to other drugs, medicaments and biological substances
CPT/HCPCS: 96372; 99283; J1200; J1885; J2765

== ENCOUNTER 2023-09-18 16:24 | Emergency (ER) | payer MEDICAID ==
[2023-09-18 17:03] LABS: BASOPHILS ABSOLUTE AUTO 0.03 K/uL (0.00-0.10); BASOPHILS PERCENT AUTO 0.3 % (0.1-1.3); EOSINOPHILS ABSOLUTE AUTO 0.14 K/uL (0.00-0.40); EOSINOPHILS PERCENT AUTO 1.3 % (0.0-5.4); HEMATOCRIT 45.6 % (34.3-46.0); HEMOGLOBIN 15.8 g/dL (11.2-15.5); IMMATURE GRAN ABSOLUTE AUTO 0.04 K/uL (0.00-0.23); IMMATURE GRAN PERCENT AUTO 0.4 % (0.0-0.7); LYMPHOCYTES ABSOLUTE AUTO 2.16 K/uL (0.8-3.3); LYMPHOCYTES PERCENT AUTO 19.5 % (11.4-47.7); MEAN CORPUSCULAR HEMOGLOBIN 29.9 pg (31.6-35.5); MEAN CORPUSCULAR HGB CONC 34.6 g/dL (31.6-35.5); MEAN CORPUSCULAR VOLUME 86.4 fL (81.4-99.0); MONOCYTES ABSOLUTE AUTO 0.71 K/uL (0.20-0.90); MONOCYTES PERCENT AUTO 6.4 % (3.3-12.6); NEUTROPHILS ABSOLUTE AUTO 7.97 K/uL (1.0-7.6); NEUTROPHILS PERCENT AUTO 72.1 % (40.0-78.1); PLATELET COUNT,PLT 264 K/uL (130-375); RED BLOOD CELL COUNT 5.28 M/uL (3.77-5.24); WHITE BLOOD CELL COUNT,WBC 11.1 K/uL (3.2-11.0)
[2023-09-18] MEDS: Ondansetron 4 MG/2 ML SDV IVPUSH ONE ×2 (17:06→19:11)
[2023-09-18] MEDS: HYDROmorphone 1 MG/ML Syringe IVPUSH ONE (17:06)
[2023-09-18 17:31] LABS: A/G RATIO 1.2 (1.2-2.2); ALANINE AMINOTRANSFERASE,ALT 55 U/L (12-78); ALBUMIN 4.4 g/dL (3.4-5.0); ALKALINE PHOSPHATASE 87 U/L (46-116); ANION GAP 9.4 mmol/L (5.0-14.0); ASPARTATE AMNIOTRANSFERASE,AST 20 U/L (15-37); BILIRUBIN TOTAL 0.5 mg/dL (0.2-1.0); BLOOD UREA NITROGEN,BUN 15 mg/dL (7-18); C-REACTIVE PROTEIN 0.76 mg/dL (<0.50); CALCIUM 9.3 mg/dL (8.5-10.1); CARBON DIOXIDE,CO2 26 mmol/L (21-32); CHLORIDE,CL 105 mmol/L (100-108); CREATININE 0.8 mg/dL (0.6-1.0); EST CRCL DRUG DOSING (CG) 103.73 mL/min; ESTIMATED GFR 102 mL/min (>60); GLUCOSE RANDOM 90 mg/dL (74-106); HCG QUANTITATIVE 0 mIU/mL (0-6); POTASSIUM,K 3.7 mmol/L (3.6-5.2); PROTEIN TOTAL,TP 8.1 g/dL (6.4-8.2); SODIUM,NA 140 mmol/L (140-148)
[2023-09-18] MEDS: Iopamidol 612 MG/ML 100 ML Bottle IV SCH (18:05)
[2023-09-18] MEDS: Sodium Chloride 0.9% 80 ML IV SCH (18:05)
[2023-09-18] MEDS: HYDROmorphone 0.5 MG/0.5 ML Syringe IVPUSH ONE (18:17)
[2023-09-18] MEDS: Sodium Chloride 0.9% 1,000 ML IV ONE (18:18)
[2023-09-18 19:00] LABS: APPEARANCE,URINE SLIGHTLY CLOUDY (CLEAR); BILIRUBIN,URINE NEGATIVE (NEGATIVE); COLOR,URINE YELLOW (YELLOW); GLUCOSE,URINE NEGATIVE (NEGATIVE); KETONES,URINE NEGATIVE (NEGATIVE); LEUKOCYTE ESTERASE,URINE NEGATIVE (NEGATIVE); NITRITE,URINE NEGATIVE (NEGATIVE); OCCULT BLOOD,URINE NEGATIVE (NEGATIVE); PH,URINE 5.5 (5.0-8.0); PROTEIN,URINE NEGATIVE (NEGATIVE); UROBILINOGEN,URINE 0.2 EU/dL (0.2-1.0)
[2023-09-18 19:17] LABS: AMORPHOUS SEDIMENT,URINE NOT SEEN; BACTERIA,URINE MODERATE; EPITHELIAL CELLS,URINE MODERATE; MUCUS,URINE FEW; RBC,URINE 0-5 (0-5)
[2023-09-18] MEDS ORDERED: HYDROmorphone 1 MG/ML Syringe IVPUSH ONE (20:03)
== END 2023-09-18 20:09 | disposition home or self-care (01) ==
LOC: JP.ED 16:24
DX: K65.9 Peritonitis, unspecified (principal); J45.909 Unspecified asthma, uncomplicated; E66.9 Obesity, unspecified; Z87.891 Personal history of nicotine dependence; Z79.899 Other long term (current) drug therapy; Z88.6 Allergy status to analgesic agent; Z88.1 Allergy status to other antibiotic agents; Z88.8 Allergy status to other drugs, medicaments and biological substances; Z68.43 Body mass index [BMI] 50.0-59.9, adult
CPT/HCPCS: 36415; 74177; 80053; 81001; 83605; 84702; 85025; 86140; 87086; 96361; 96374; 96375; 96376; 99284; J1170; J2405; J3490; J7030; Q9967